=== PATIENT | male | born 1925 | race Caucasian/White ===

== ENCOUNTER → 2016-05-09 | Outpatient (CLI) | payer OTHER ==
[~2016-05-09] MED LIST: ACET-1256 PO; ASPI-435 PO; ATEN50TA8 PO; BIMA0.01 OPR; CALC500C50 PO; CETI10TA84 PO; CLOP1TAB15 PO; CYCL0.052 OP; FLM4 PO; FLNIN/; LEVO-366 PO; LOSA50TA6 PO; METH500T3 PO; MIRA1TAB3 PO; NAPR1TAB9 PO; NRN100 PO; NXM/40 PO; RANI300T PO; SIMV40TA2 PO; SNG10 PO
[2016-05-09 10:54] LABS: BLOOD UREA NITROGEN 25 mg/dl (7-18); BUN/CREATININE RATIO 20.8 (10-20); CALCIUM 8.7 mg/dl (8.5-10.1); CARBON DIOXIDE 30 mmol/L (21-32); CHLORIDE 109 mmol/L (98-107); GLUCOSE 101 mg/dl (70-99); POTASSIUM 3.9 mmol/L (3.5-5.1); SODIUM 144 mmol/L (136-145)
== END | disposition home or self-care (01) ==
LOC: C.LABVPSUW 09:29
PROVIDERS: ATTEND Internal Medicine Critical Care Medicine
DX: I12.9 Hypertensive chronic kidney disease with stage 1 through stage 4 chronic kidney disease, or unspecified chronic kidney disease (principal); N18.9 Chronic kidney disease, unspecified

== ENCOUNTER 2016-08-08 19:17 | Inpatient (IN) | payer OTHER ==
[~2016-08-08] VITALS: Ht 177.8 cm; Wt 75.0 kg
[~2016-08-08 19:17] MED LIST changes: -ATEN50TA8 PO; -BIMA0.01 OPR; -CETI10TA84 PO; -CLOP1TAB15 PO; -CYCL0.052 OP; -FLM4 PO; -LEVO-366 PO; -LOSA50TA6 PO; -METH500T3 PO; -MIRA1TAB3 PO; -NAPR1TAB9 PO; -NRN100 PO; -RANI300T PO; -SIMV40TA2 PO; -SNG10 PO
--- NOTE | 2016-08-08 19:43 | EMERGENCY ROOM VISIT NOTE ---
History Report prepared by Abram: Paulette Mcintosh Under the Supervision of: Dr. El Reyes M.D. First contact with patient: 19:26 Chief Complaint: STROKE SYMPTOMS Stated Complaint: ?STROKE History of Present Illness The patient is a 89 year old male who presents to the Emergency Room with complaints of persistent slurred speech starting around 6:30 am this morning. As per son, the patient was having some trouble walking today. He normally uses a cane to ambulate but has been using a walker today. The patient reports right leg weakness. He has chronic right leg numbness which is worse today. He also complains of some chills and back pain starting this morning. The patient denies confusion, headache, fevers, chest pain, shortness of breath, or any other complaints. He is on an aspirin but denies any other blood thinners. He has a family history of TIA. Source of History: patient, family Onset: around 6:30 am this morning Position: other (global) Quality: other (slurred speech) Timing: other (persistent) Associated Symptoms: + chills, + back pain, + weakness (right leg), + numbness (right leg), No fevers, No headache, No chest pain, No SOB Review of Systems All systems have been listed, reviewed, and are negative other than those previously mentioned. Please see Additional Medical History Sheet. Past Medical & Surgical Medical Problems: (1) Benign hypertension (2) BPH (benign prostatic hyperplasia) (3) Cholecystectomy (4) Esophageal Reflux (5) Facial droop (6) Gastroesophageal reflux disease (7) History of airway aspiration (8) Hyperlipidemia (9) Hyperlipidemia Nec/Nos (10) Hypertension Nos (11) Overactive bladder (12) Skin problems (13) Spinal stenosis (14) transurethral transection (15) Weakness Family History Hypertension Stroke or transient ischemic attack in son Social History Smoking Status: Former Smoker Alcohol Use: occasionally Drug Use: none Marital Status: Housing Status: lives with family Occupation Status: retired Current/Historical Medications Scheduled Acetaminophen (Tylenol), 500 MG PO DAILY Aspirin (Aspirin 81), 81 MG PO DAILY Atenolol (Tenormin), 50 MG PO DAILY Bimatoprost (Lumigan), 1 DROP OPR DAILY Cyclosporine (Ophth) (Restasis), 1 DROP OP UD Esomeprazole Magnesium (Nexium), 40 MG PO BID Gabapentin (Gabapentin), 100 MG PO BID Losartan Potassium (Cozaar), 50 MG PO DAILY Methylcellulose (Laxative) (Citrucel), 500 MG PO DAILY Mirabegron (Myrbetriq Er), 50 MG PO DAILY Ranitidine Hcl (Zantac), 300 MG PO HS Simvastatin (Zocor), 40 MG PO QPM Tamsulosin HCl (Tamsulosin HCl), 1 TAB PO DAILY Scheduled PRN Calcium Carbonate (Antacid) (Tums), 1-2 TABS PO DAILY PRN for Heartburn Cetirizine (Zyrtec), 10 MG PO DAILY PRN for ALLERGY SEASON Montelukast Sod (Montelukast Sodium), 10 MG PO DAILY PRN for ALLERGIC REACTION Naproxen (Aleve), 220 MG PO Q12 PRN for Pain Allergies Coded Allergies: Azithromycin (Verified Allergy, Unknown, PER H&P 05/20/11, 07/30/14) Erythromycin (Verified Allergy, Unknown, unknown, 07/30/14) Indomethacin (Verified Allergy, Unknown, PER ADMISSION ORDERS 05/20/11, TAKES NAPROXEN OTC, 07/30/14) Metformin (Verified Allergy, Unknown, PER H&P 05/20/11, 07/30/14) Penicillins (Verified Allergy, Unknown, UNKNOWN, 07/30/14) Rosiglitazone (Verified Allergy, Unknown, PER H&P 05/20/11, 07/30/14) Physical Exam Vital Signs Date Time Temp Pulse Resp B/P (MAP) Pulse Ox O2 Delivery O2 Flow Rate FiO2 08/08/16 23:30 82 20 128/76 97 Room Air 08/08/16 22:01 85 19 147/78 96 Room Air 08/08/16 20:50 75 20 126/69 95 Room Air 08/08/16 20:13 80 20 140/76 95 Room Air 08/08/16 20:01 95 Room Air 08/08/16 19:39 85 08/08/16 19:19 36.7 62 18 130/74 97 Room Air Physical Exam GENERAL: Patient awake, alert, oriented x 3. Patient follows commands. Patient does not appear toxic. Patient is adequately hydrated and well- nourished. SKIN: No erythema, pallor, cyanosis or rash HEENT: Normal head, pupils equal, reactive to light and accommodation. Slight right facial droop. Ears normal. Oral cavity and posterior pharynx appear normal. Neck: Without adenopathy, no neck vein distention. LUNGS: Clear to auscultation. No wheezes, no rales, no rhonchi. HEART: No murmurs. No gallops. No rubs ABDOMEN: No masses, no rebound, no hepatomegaly or splenomegaly. EXTREMITIES: No signs of trauma. No pedal or pretibial edema. No calf or thigh tenderness. Tenderness over sacrum. NEUROLOGIC: Slight right facial droop. Slight dysarthria. Patient has slight weakness right leg, and slight slurred speech. NIH stroke score: 2. Medical Decision & Procedures ER Provider Diagnostic Interpretation: X ray results are stated below per my interpretation and the radiologist's interpretation. CHEST ONE VIEW PORTABLE CLINICAL HISTORY: RIGHT SIDED WEAKNESS COMPARISON STUDY: 10/06/2015 FINDINGS: The heart is normal in size. There is no failure. There are no pleural effusions. There are subtle left midlung zone air space opacities. These were not present on the prior study. A minimal pneumonitis is suspected. Radiographic follow-up is recommended. [ IMPRESSION: Subtle left midlung zone airspace opacities, possibly representing a pneumonia. Radiographic follow-up is recommended. Electronically signed by: Neo Parisi M.D. 08/08/2016 8:02 PM Dictated Date/Time: 08/08/2016 8:[address] results as stated below per my review and radiologist interpretation: CT HEAD WITHOUT CONTRAST (CT) CLINICAL HISTORY: RIGHT SIDED WEAKNESS COMPARISON STUDY: No previous studies for comparison. TECHNIQUE: Axial CT of the brain is performed from the vertex to the skull base. IV contrast was not administered for this examination. CT DOSE: 614.27 mGy.cm FINDINGS: No intra or extra-axial mass lesions are visualized. There is no CT evidence of acute cortical infarction. There is no evidence of midline shift. There is no acute hemorrhage. No calvarial fractures are visualized. There are patchy white matter hypodensities likely on a small vessel basis. There is a right basal ganglia hypodensity, representing either a prominent CSF space or old lacunar infarct. There is no evidence of pathologic ventricular dilatation. There is no evidence of acute sinusitis IMPRESSION: No acute intracranial findings Electronically signed by: Neo Parisi M.D. 08/08/2016 7:47 PM Dictated Date/Time: 08/08/2016 7:45 PM Laboratory Results 08/08/16 19:50 Red Blood Count 4.76, Mean Corpuscular Volume 96.0, Mean Corpuscular Hemoglobin 33.8, Mean Corpuscular Hemoglobin Concent 35.2, Mean Platelet Volume 10.8, Neutrophils (%) (Auto) 82.6, Lymphocytes (%) (Auto) 9.3, Monocytes (%) (Auto) 7.0, Eosinophils (%) (Auto) 0.7, Basophils (%) (Auto) 0.2, Neutrophils # (Auto) 11.40, Lymphocytes # (Auto) 1.29, Monocytes # (Auto) 0.97, Eosinophils # (Auto) 0.09, Basophils # (Auto) 0.03 08/08/16 19:50 Test 08/08/16 19:50 08/08/16 22:35 White Blood Count 13.81 K/uL (4.8-10.8) Red Blood Count 4.76 M/uL (4.7-6.1) Hemoglobin 16.1 g/dL (14.0-18.0) Hematocrit 45.7 % (42-52) Mean Corpuscular Volume 96.0 fL (80-100) Mean Corpuscular Hemoglobin 33.8 pg (25-34) Mean Corpuscular Hemoglobin Concent 35.2 g/dl (32-36) Platelet Count 152 K/uL (130-400) Mean Platelet Volume 10.8 fL (7.4-10.4) Neutrophils (%) (Auto) 82.6 % Lymphocytes (%) (Auto) 9.3 % Monocytes (%) (Auto) 7.0 % Eosinophils (%) (Auto) 0.7 % Basophils (%) (Auto) 0.2 % Neutrophils # (Auto) 11.40 K/uL (1.4-6.5) Lymphocytes # (Auto) 1.29 K/uL (1.2-3.4) Monocytes # (Auto) 0.97 K/uL (0.11-0.59) Eosinophils # (Auto) 0.09 K/uL (0-0.5) Basophils # (Auto) 0.03 K/uL (0-0.2) RDW Standard Deviation 44.5 fL (36.4-46.3) RDW Coefficient of Variation 12.7 % (11.5-14.5) Immature Granulocyte % (Auto) 0.2 % Immature Granulocyte # (Auto) 0.03 K/uL (0.00-0.02) Prothrombin Time 10.7 SECONDS (9.0-12.0) Prothromb Time International Ratio 1.0 (0.9-1.1) Activated Partial Thromboplast Time 30.1 SECONDS (21.0-31.0) Partial Thromboplastin Ratio 1.2 Anion Gap 10.0 mmol/L (3-11) Est Creatinine Clear Calc Drug Dose 40.6 ml/min Estimated GFR () 56.5 Estimated GFR (Non- 48.7 BUN/Creatinine Ratio 19.8 (10-20) Calcium Level 8.6 mg/dl (8.5-10.1) Total Bilirubin 0.8 mg/dl (0.2-1) Aspartate Amino Transf (AST/SGOT) 7 U/L (15-37) Alanine Aminotransferase (ALT/SGPT) 16 U/L (12-78) Alkaline Phosphatase 88 U/L (45-117) Troponin I < 0.015 ng/ml (0-0.045) Total Protein 6.3 gm/dl (6.4-8.2) Albumin 3.8 gm/dl (3.4-5.0) Globulin 2.5 gm/dl (2.5-4.0) Albumin/Globulin Ratio 1.5 (0.9-2) Procalcitonin 0.05 ng/ml (0-0.5) Lactic Acid Level 0.9 mmol/L (0.4-2.0) Laboratory results as stated above per my review. Medications Administered Medications (Trade) Dose Ordered Sig/Daya Route Start Time Stop Time Status Last Admin Dose Admin Sodium Chloride 1,000 ml @ 1,000 mls/hr Q1H ONCE IV 08/08/16 21:30 08/08/16 22:29 DC 08/08/16 22:43 1,000 MLS/HR Levofloxacin (Levaquin / D5W) 750 mg NOW ONCE IV 08/08/16 21:30 08/08/16 21:31 DC 08/08/16 22:43 750 MG ECG Indication: weakness, other (Stroke-like symptoms) Rate (beats per minute): 83 Rhythm: normal sinus Findings: PVC (occasional), no acute ischemic change ED Course 1925: Past medical records reviewed. The patient was evaluated in room B06. A complete history and physical examination was performed. 2129: Tobramycin Sulfate 80 mg/Dextrose 102 ml @ 100 mls/hr IV, Levofloxacin 750 mg IV, Aztreonam 2000 mg/Dextrose 110 ml @ 100 mls/hr IV, Sodium Chloride 1000 ml @ 1000 mls/hr IV 2131: Upon reevaluation, the patient is resting comfortably.I discussed today's findings with the patient and his family. They verbalized agreement of the treatment plan. [facility] the [facility] for further management. Medical Decision Differential diagnosis includes but is not limited to CVA, TIA, complex migraine. Multiple labs, EKG and imaging were obtained. The patient has no evidence of a hemorrhagic stroke. 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 Chest x-ray reveals new small infiltrates on the left side. White count is elevated. Blood cultures were obtained prior to administration of IV Levaquin. The patient is outside of the window for TPA. I discussed care with the patient and his 2 sons. I also discussed care with the hospitalist. Medication Reconciliation: I attest that I have personally reviewed the patient' s current medication list. Blood Pressure Screening: Patient was found to have an elevated blood pressure and was referred to the hospitalist for recheck and further treatment. Consults Time Called: 2129 Consulting Physician: Dr. Coats of the [facility] Returned Call: [address] [facility] to [facility] the patient for further management. Impression Primary Impression: CVA (cerebral vascular accident) Additional Impression: Pneumonia Scribe Attestation The scribe's documentation has been prepared under my direction and personally reviewed by me in its entirety. I confirm that the note above accurately reflects all work, treatment, procedures, and medical decision making performed by me. Departure Information Dispostion Being Evaluated By Hospitalist Referrals No Doctor, Assigned (PCP) Patient Instructions My [facility] Stroke History Time Last Known Well around 6:30 am Stroke t-PA Criteria Reviewed Does NOT meet criteria for t-PA Reason t-PA Not Given Treatment not indicated Problem Qualifiers
--- NOTE | 2016-08-08 19:48 | DIAGNOSTIC IMAGING REPORT ---
CT HEAD WITHOUT CONTRAST (CT) CLINICAL HISTORY: RIGHT SIDED WEAKNESS COMPARISON STUDY: No previous studies for comparison. TECHNIQUE: Axial CT of the brain is performed from the vertex to the skull base. IV contrast was not administered for this examination. CT DOSE: 614.27 mGy.cm FINDINGS: No intra or extra-axial mass lesions are visualized. There is no CT evidence of acute cortical infarction. There is no evidence of midline shift. There is no acute hemorrhage. No calvarial fractures are visualized. There are patchy white matter hypodensities likely on a small vessel basis. There is a right basal ganglia hypodensity, representing either a prominent CSF space or old lacunar infarct. There is no evidence of pathologic ventricular dilatation. There is no evidence of acute sinusitis IMPRESSION: No acute intracranial findings Electronically signed by: Neo Parisi M.D. 08/08/2016 7:47 PM Dictated Date/Time: 08/08/2016 7:45 PM
--- NOTE | 2016-08-08 20:04 | DIAGNOSTIC IMAGING REPORT ---
CHEST ONE VIEW PORTABLE CLINICAL HISTORY: RIGHT SIDED WEAKNESS COMPARISON STUDY: 10/06/2015 FINDINGS: The heart is normal in size. There is no failure. There are no pleural effusions. There are subtle left midlung zone air space opacities. These were not present on the prior study. A minimal pneumonitis is suspected. Radiographic follow-up is recommended. [ IMPRESSION: Subtle left midlung zone airspace opacities, possibly representing a pneumonia. Radiographic follow-up is recommended. Electronically signed by: Neo Parisi M.D. 08/08/2016 8:02 PM Dictated Date/Time: 08/08/2016 8:01 PM
[2016-08-08 20:05] LABS: BASO % 0.2 %; BASO ABS # 0.03 K/uL (0-0.2); COMPLETE YES; EOS % 0.7 %; HEMATOCRIT 45.7 % (42-52); IG% 0.2 %; LYMPH % 9.3 %; LYMPH ABS # 1.29 K/uL (1.2-3.4); MEAN CORPUSCULAR HEMOGLOBIN 33.8 pg (25-34); MEAN CORPUSCULAR HGB CONC 35.2 g/dl (32-36); MEAN PLATELET VOLUME 10.8 fL (7.4-10.4); NEUT % 82.6 %; PLATELET COUNT 152 K/uL (130-400); RED BLOOD COUNT 4.76 M/uL (4.7-6.1); WHITE BLOOD COUNT 13.81 K/uL (4.8-10.8)
[2016-08-08 20:19] LABS: PARTIAL THROMBOPLASTIN RATIO 1.2; PROTHROMBIN TIME (PATIENT) 10.7 SECONDS (9.0-12.0)
[2016-08-08 20:25] LABS: ALT/SGPT 16 U/L (12-78); AST/SGOT 7 U/L (15-37); BLOOD UREA NITROGEN 26 mg/dl (7-18); BUN/CREATININE RATIO 19.8 (10-20); CALCIUM 8.6 mg/dl (8.5-10.1); CARBON DIOXIDE 24 mmol/L (21-32); CHLORIDE 108 mmol/L (98-107); GLUCOSE 127 mg/dl (70-99); POTASSIUM 3.8 mmol/L (3.5-5.1); SODIUM 142 mmol/L (136-145)
[2016-08-08 20:30] LABS: ALB/GLOB RATIO 1.5 (0.9-2); ALKALINE PHOSPHATASE 88 U/L (45-117)
[2016-08-08] MEDS ORDERED: SNG10 PO (20:34)
[2016-08-08] MEDS ORDERED: NRN100 PO (20:34)
[2016-08-08] MEDS ORDERED: BIMA0.01 OPB (20:34)
[2016-08-08] MEDS ORDERED: FLM4 PO (20:34)
[2016-08-08] MEDS ORDERED: MIRA1TAB3 PO (20:34)
[2016-08-08] MEDS ORDERED: DEXTROSE 5% IV ONE (21:30)
[2016-08-08] MEDS ORDERED: LEVAQUIN 750MG / 150ML D5W IV ONE (21:30)
[2016-08-08] MEDS ORDERED: SODIUM CHLORIDE 0.9% 1000ML 1,000 ML IV ONE (21:30)
[2016-08-08] MEDS ORDERED: AZTREONAM IV 2,000 MG in DEXTROSE 5% 100ML 100 ML IV ONE (21:30)
[2016-08-08] MEDS ORDERED: TOBRAMYCIN SULF IV ONE (21:30)
[2016-08-08] MEDS ORDERED: ACETAMINOPHEN 325 MG TAB PO PRN (22:30)
[2016-08-08] MEDS ORDERED: MAGNESIUM HYDROXIDE SUSP 30 ML UDC PO PRN (22:30)
[2016-08-08] MEDS ORDERED: ONDANSETRON INJ 2 MG/ML 2 ML VIAL IV PRN (22:30)
[2016-08-08] MEDS ORDERED: CLINDAMYCIN IV 300 MG in DEXTROSE 5% 50ML 50 ML IV SCH (22:30)
[2016-08-08] MEDS ORDERED: POLYETHYLENE (MIRALAX) 17 GM PACK PO PRN (22:30)
[2016-08-08] MEDS ORDERED: ALUMINUM/MAGNESIUM/SIMETH (MAALOX MAX) 30 ML UDC PO PRN (22:30)
[2016-08-08] MEDS ORDERED: NAPROXEN 250 MG TAB PO PRN (22:45)
[2016-08-08] MEDS ORDERED: CALCIUM CARBONATE 500 MG CHEWABLE PO PRN (22:45)
[2016-08-08] MEDS ORDERED: MONTELUKAST SOD 10 MG TAB PO PRN (22:45)
[2016-08-08] MEDS ORDERED: CETIRIZINE HCL 10 MG TAB PO PRN (22:45)
--- NOTE | 2016-08-08 23:21 | History and Physical ---
History & Physical Date & Time of Service: Aug 08, 2016 at 22:49 Chief Complaint: ?Stroke Primary Care Physician: Terrell Briseno M.D. History of Present Illness Source: patient, family This is a pleasant 89-year-old male with background history of hypertension, hyperlipidemia, GERD/Almendarez's esophagus, history of aspiration pneumonia, and multiple distant lower back surgeries, who presents to the emergency room, brought in by his 2 sons. He is a resident at the [facility] at [facility]. His sons were visiting him today in the late afternoon, noted that he seemed weaker and that is having some difficulty with ambulation. Normally he walks with a cane in his right hand due to long-standing lower extremity weakness/numbness of right leg due to spinal stenosis. However today, he needed tube oral his 's wheelchair to ambulate. The patient denies having any weakness that localizes unilaterally, he simply states "I just feel weak all over". In addition, the sons felt that he seems to been slurring his words slightly more than usual. The patient does state that he feels he is having some difficulty expressing words, but states that he is not having difficulty finding words. He denies any difficulty with comprehension or recognition. In the ED, they were told that he seemed as though he may have had some drooping of his right cheek. Otherwise he chest pain, palpitations, lightheadedness, dizziness, orthopnea or lower extremity edema. There is no history of falls, or head trauma. The patient never lost consciousness, and had no myoclonic movements, tongue biting, or urinary/bowel incontinence. He does state that for the past few days he has had some exertional shortness of breath. However he has not had any coughing, and has not felt wheezy. He does have chills at baseline, though has not measured any fevers and denies having any night sweats. He notes his appetite is at baseline and that he generally eats well. He does note that he is Priestly had a history of aspiration pneumonia, though denies that he's had any episodes of choking recently. In the ED, CT brain was normal. Consolidation was noted on chest x-ray, so the patient was treated with first doses of aztreonam, Levaquin and tobramycin. Past Medical/Surgical History Medical Problems: (1) Benign hypertension Status: Chronic (2) Cholecystectomy Status: Resolved (3) Esophageal Reflux Status: Chronic (4) Gastroesophageal reflux disease Status: Chronic (5) Hyperlipidemia Status: Chronic (6) Hyperlipidemia Nec/Nos Status: Chronic (7) Hypertension Nos Status: Chronic Family History Hypertension Stroke or transient ischemic attack in son Son has had a TIA. Sclerae in his 60s. Father had a stroke at 61 Mother had a massive KS at 86 Social History Smoking Status: Former Smoker Smokeless Tobacco Use: No Alcohol Use: none Drug Use: none Marital Status: Housing status: lives with family Occupational Status: retired Immunizations History of Influenza Vaccine: Yes History of Tetanus Vaccine?: Yes History of Pneumococcal: Yes History of Hepatitis B Vaccine: Unknown Allergies Coded Allergies: Azithromycin (Verified Allergy, Unknown, PER H&P 05/20/11, 07/30/14) Erythromycin (Verified Allergy, Unknown, unknown, 07/30/14) Indomethacin (Verified Allergy, Unknown, PER ADMISSION ORDERS 05/20/11, TAKES NAPROXEN OTC, 07/30/14) Metformin (Verified Allergy, Unknown, PER H&P 05/20/11, 07/30/14) Penicillins (Verified Allergy, Unknown, UNKNOWN, 07/30/14) Rosiglitazone (Verified Allergy, Unknown, PER H&P 05/20/11, 07/30/14) Home Medications Scheduled Acetaminophen (Tylenol), 500 MG PO DAILY Aspirin (Aspirin 81), 81 MG PO DAILY Atenolol (Tenormin), 50 MG PO DAILY Bimatoprost (Lumigan), 1 DROP OPR DAILY Cyclosporine (Ophth) (Restasis), 1 DROP OP UD Esomeprazole Magnesium (Nexium), 40 MG PO BID Gabapentin (Gabapentin), 100 MG PO BID Losartan Potassium (Cozaar), 50 MG PO DAILY Methylcellulose (Laxative) (Citrucel), 500 MG PO DAILY Mirabegron (Myrbetriq Er), 50 MG PO DAILY Ranitidine Hcl (Zantac), 300 MG PO HS Simvastatin (Zocor), 40 MG PO QPM Tamsulosin HCl (Tamsulosin HCl), 1 TAB PO DAILY Scheduled PRN Calcium Carbonate (Antacid) (Tums), 1-2 TABS PO DAILY PRN for Heartburn Cetirizine (Zyrtec), 10 MG PO DAILY PRN for ALLERGY SEASON Montelukast Sod (Montelukast Sodium), 10 MG PO DAILY PRN for ALLERGIC REACTION Naproxen (Aleve), 220 MG PO Q12 PRN for Pain Review of Systems 10 point review of systems is otherwise negative unless stated above in the history of present illness Physical Exam Vital Signs Date Time Temp Pulse Resp B/P (MAP) Pulse Ox O2 Delivery O2 Flow Rate FiO2 08/08/16 22:01 85 19 147/78 96 Room Air 08/08/16 20:50 75 20 126/69 95 Room Air 08/08/16 20:13 80 20 140/76 95 Room Air 08/08/16 20:01 95 Room Air 08/08/16 19:39 85 08/08/16 19:19 36.7 62 18 130/74 97 Room Air General Appearance: WD/WN, no apparent distress Head: normocephalic, atraumatic Eyes: normal inspection, PERRL, EOMI ENT: hearing grossly normal, pharynx normal (no deviation of the uvula), + pertinent finding (slight downward slanting of the right angle of the mouth; can make good smile) Neck: supple, no adenopathy, no JVD, + pertinent finding (no carotid bruits noted) Respiratory/Chest: chest non-tender, no respiratory distress, no accessory muscle use, + crackles (left base, and the posterior field) Cardiovascular: regular rate, rhythm, no gallop, no murmur Abdomen/GI: normal bowel sounds, non tender, soft Back: no CVA tenderness, no muscle spasm Extremities/Musculoskelatal: no calf tenderness, no pedal edema Neurologic/Psych: alert, normal mood/affect, oriented x 3, + pertinent finding (5 out of 5 motor strength in the upper and lower extremities; diminished sensation in the right lower extremity, which is long-standing for the patient) Skin: normal color, warm/dry, no rash Lymphatic: no adenopathy Intact finger to nose testing (Cerebellar) Negative pronator drift Diagnostics Laboratory Results Results Past 24 Hours Test 08/08/16 19:50 08/08/16 22:30 08/08/16 22:35 Range/Units White Blood Count 13.81 4.8-10.8 K/uL Red Blood Count 4.76 4.7-6.1 M/uL Hemoglobin 16.1 14.0-18.0 g/dL Hematocrit 45.7 42-52 % Mean Corpuscular Volume 96.0 80-100 fL Mean Corpuscular Hemoglobin 33.8 25-34 pg Mean Corpuscular Hemoglobin Concent 35.2 32-36 g/dl Platelet Count 152 130-400 K/uL Mean Platelet Volume 10.8 7.4-10.4 fL Neutrophils (%) (Auto) 82.6 % Lymphocytes (%) (Auto) 9.3 % Monocytes (%) (Auto) 7.0 % Eosinophils (%) (Auto) 0.7 % Basophils (%) (Auto) 0.2 % Neutrophils # (Auto) 11.40 1.4-6.5 K/uL Lymphocytes # (Auto) 1.29 1.2-3.4 K/uL Monocytes # (Auto) 0.97 0.11-0.59 K/uL Eosinophils # (Auto) 0.09 0-0.5 K/uL Basophils # (Auto) 0.03 0-0.2 K/uL RDW Standard Deviation 44.5 36.4-46.3 fL RDW Coefficient of Variation 12.7 11.5-14.5 % Immature Granulocyte % (Auto) 0.2 % Immature Granulocyte # (Auto) 0.03 0.00-0.02 K/uL Prothrombin Time 10.7 9.0-12.0 SECONDS Prothromb Time International Ratio 1.0 0.9-1.1 Activated Partial Thromboplast Time 30.1 21.0-31.0 SECONDS Partial Thromboplastin Ratio 1.2 Sodium Level 142 136-145 mmol/L Potassium Level 3.8 3.5-5.1 mmol/L Chloride Level 108 98-107 mmol/L Carbon Dioxide Level 24 21-32 mmol/L Anion Gap 10.0 3-11 mmol/L Blood Urea Nitrogen 26 7-18 mg/dl Creatinine 1.30 0.60-1.40 mg/dl Est Creatinine Clear Calc Drug Dose 40.6 ml/min Estimated GFR () 56.5 Estimated GFR (Non- 48.7 BUN/Creatinine Ratio 19.8 10-20 Random Glucose 127 70-99 mg/dl Calcium Level 8.6 8.5-10.1 mg/dl Total Bilirubin 0.8 0.2-1 mg/dl Aspartate Amino Transf (AST/SGOT) 7 15-37 U/L Alanine Aminotransferase (ALT/SGPT) 16 12-78 U/L Alkaline Phosphatase 88 45-117 U/L Troponin I < 0.015 0-0.045 ng/ml Total Protein 6.3 6.4-8.2 gm/dl Albumin 3.8 3.4-5.0 gm/dl Globulin 2.5 2.5-4.0 gm/dl Albumin/Globulin Ratio 1.5 0.9-2 Microbiology Results 08/08/16 Blood Culture, Received Pending 08/08/16 Blood Culture, Received Pending Diagnostic Radiology CT HEAD WITHOUT CONTRAST (CT) CLINICAL HISTORY: RIGHT SIDED WEAKNESS COMPARISON STUDY: No previous studies for comparison. TECHNIQUE: Axial CT of the brain is performed from the vertex to the skull base. IV contrast was not administered for this examination. CT DOSE: 614.27 mGy.cm FINDINGS: No intra or extra-axial mass lesions are visualized. There is no CT evidence of acute cortical infarction. There is no evidence of midline shift. There is no acute hemorrhage. No calvarial fractures are visualized. There are patchy white matter hypodensities likely on a small vessel basis. There is a right basal ganglia hypodensity, representing either a prominent CSF space or old lacunar infarct. There is no evidence of pathologic ventricular dilatation. There is no evidence of acute sinusitis IMPRESSION: No acute intracranial findings Electronically signed by: Neo Parisi M.D. 08/08/2016 7:47 PM Dictated Date/Time: 08/08/2016 7:45 PM The status of this report is Signed. Draft = Not yet reviewed or approved by Radiologist. Signed = Reviewed and approved by Radiologist. [~ rep ct add3]] CHEST ONE VIEW PORTABLE CLINICAL HISTORY: RIGHT SIDED WEAKNESS COMPARISON STUDY: 10/06/2015 FINDINGS: The heart is normal in size. There is no failure. There are no pleural effusions. There are subtle left midlung zone air space opacities. These were not present on the prior study. A minimal pneumonitis is suspected. Radiographic follow-up is recommended. [ IMPRESSION: Subtle left midlung zone airspace opacities, possibly representing a pneumonia. Radiographic follow-up is recommended. Electronically signed by: Neo Parisi M.D. 08/08/2016 8:02 PM Dictated Date/Time: 08/08/2016 8:01 PM EKG Sinus rhythm with occasional Premature ventricular complexes Otherwise normal ECG When compared with ECG of 30-JUL-2014 03:15, Premature ventricular complexes are now Present Impression Assessment and Plan (1) Transient ischemic attack Assessment & Plan: - Patient currently within the 24-hour window; noted that symptoms seemed present at 6:30 this morning - Out of window for TPA - CT brain negative for acute process - Additional studies to be ordered for further evaluation MRI brain combo MRA head without contrast MRA neck without contrast Carotid artery Dopplers Echocardiogram - I will order an HbA1c and fasting lipid profile with morning labs - Neurology is been consultative for further recommendations - Continue ASA 81 g daily; continue simvastatin - Patient's antihypertensives will be placed on hold, as we will allow for some degree of permissive hypertension; keep SBP less than 180 - Due to weakness, we will have PT and OT evaluate the patient (2) Pneumonia Assessment & Plan: - Subtle left mid zone opacity, clinically correlated crackles noted on left side - Patient is maintaining saturations on room air - We'll order pro-calcitonin level now and tomorrow morning - Patient is noted to have had history with aspiration - IV Levaquin and IV Flagyl - DuoNeb 4 times a day when necessary for shortness of breath or wheezing - We will reorder speech and leg which therapy to reassess the patient, last evaluation is noted to have been in 2014 (3) History of airway aspiration Assessment & Plan: - As noted in management of pneumonia (4) Hypertension Nos Assessment & Plan: - The patient takes atenolol and losartan at home - BPs are currently 1:30 to 140 systolic. - In the setting of evaluation for CVA/TIA, I will hold antihypertensives at this time and we will allow for permissive hypertension - Keep SBP less than 180 (5) Gastroesophageal reflux disease Assessment & Plan: - Continue Tums when necessary - Patient takes Esomeprazole at home; this will be changed to pantoprazole while admitted - Continue ranitidine (6) Hyperlipidemia Nec/Nos Assessment & Plan: - Continue simvastatin (7) Spinal stenosis Assessment & Plan: - Continue gabapentin - Naproxen when necessary, per home meds (8) Overactive bladder Assessment & Plan: - Continue Mirbetric (9) BPH (benign prostatic hyperplasia) Assessment & Plan: - Continue tamsulosin DVT Prophylaxis - Lovenox 40 mg daily - SCD Code Status - Level I Disposition - Telemetry - OT and PT evaluations have been ordered Level of Care Telemetry Resuscitation Status FULL RESUSCITATION VTE Prophylaxis VTE Risk Assessment Done? Y/N: Yes Risk Level: Moderate Note Resident Physician Supervision Note: I was present with Dr. Oliver during the history and exam. I discussed the case with the resident and agree with the findings and plan as documented in the note. Any exceptions or clarifications are listed here: 89 y/o M Hx HTN with CVA-like symptoms - speech difficulty and R facial droop - since AM Had additionally c/o cough and has an infiltrate on CXR OE AAO x 2 S1,2 R CTAB NT, ND, BS+ Difficulty with word finding is present as is facial asymmetry P: CVA workup - ASA, statin, neuro consult - MRI/MRA, carotid doppler Treating PNM with Levaquin - PRN nebs Documented By: Ramesh Coats
[2016-08-08] MEDS ORDERED: ALBUT/IPRATROP 3MG/0.5MG NEB 3 ML VIAL INH PRN (23:30)
[2016-08-09] MEDS ORDERED: GADAVIST IV PRN (02:15)
[2016-08-09 02:35] VITALS: BP 138/77; PULSE 84; TEMP 36.7; Ht 177.8 cm; Wt 75.0 kg
[2016-08-09] MEDS: METRONIDAZOLE / NSS 500 MG in PREMIXED NSS 100 ML IV SCH ×2 (05:17→12:35)
--- NOTE | 2016-08-09 06:34 | DIAGNOSTIC IMAGING REPORT ---
BILATERAL CAROTID DOPPLER STUDY HISTORY: Mental status change stroke evaluation COMPARISON: None. TECHNIQUE: Real-time, grayscale, and color Doppler sonography of the carotid arteries was performed. Imaging reviewed in the transverse and longitudinal planes. All measurements were calculated based on NASCET criteria. FINDINGS: Antegrade flow is seen in the bilateral vertebral arteries. The brachial pressures are hemodynamically similar. Mild plaque formation bilaterally The peak systolic velocity within the right ICA is 74. The right systolic ratio is 1.0. The peak systolic velocity within the left ICA is 77. The left systolic ratio is 1.1. IMPRESSION: No hemodynamically significant stenosis seen within the carotid arteries. Electronically signed by: Gurpreet Tello M.D. 08/09/2016 6:32 AM Dictated Date/Time: 08/09/2016 6:31 AM
--- NOTE | 2016-08-09 06:47 | DIAGNOSTIC IMAGING REPORT ---
MRI OF THE BRAIN WITHOUT AND WITH IV CONTRAST CLINICAL HISTORY: stroke evaluation mental status change COMPARISON STUDY: No previous studies for comparison. TECHNIQUE: Utilizing a 1.5 Rachel magnet and dedicated coil, multiplanar, multiecho imaging of the brain was performed pre and postcontrast administration. IV administration of 8.5 mL of Gadavist contrast was uneventful. FINDINGS: Diffusion-weighted images are negative for an acute ischemic event. Findings of age-related atrophy and chronic small vessel change are present. Ventricular system is midline. No significant postcontrast enhancement. IMPRESSION: No acute process. Age-related change. Electronically signed by: Gurpreet Tello M.D. 08/09/2016 6:46 AM Dictated Date/Time: 08/09/2016 6:45 AM
[2016-08-09 06:53] LABS: HEMATOCRIT 42.4 % (42-52); MEAN CORPUSCULAR HEMOGLOBIN 32.5 pg (25-34); MEAN CORPUSCULAR HGB CONC 33.5 g/dl (32-36); MEAN PLATELET VOLUME 11.2 fL (7.4-10.4); PLATELET COUNT 129 K/uL (130-400); RED BLOOD COUNT 4.37 M/uL (4.7-6.1)
[2016-08-09 07:19] VITALS: BP 130/71; PULSE 65; TEMP 36.6; O2SAT 94
--- NOTE | 2016-08-09 07:25 | DIAGNOSTIC IMAGING REPORT ---
MR ANGIOGRAM OF THE BRAIN CLINICAL HISTORY: Right-sided weakness. COMPARISON STUDY: MRI of the brain performed concurrently on 08/09/2016. TECHNIQUE: 3-D [id number] MR angiography of the intracranial circulation is performed. 3-D tumble views are created and assessed. IV contrast was not administered for this examination. FINDINGS: The internal carotid arteries are widely patent bilaterally, as are the anterior and middle cerebral arteries. The vertebrobasilar system and posterior cerebral arteries are widely patent. The vertebral arteries are codominant. There is no aneurysm, high-grade stenosis, or focal vessel cutoff seen throughout the intracranial circulation. The brain parenchyma is normal as visualized. IMPRESSION: Unremarkable MR angiogram of the brain. Electronically signed by: Sarthak Zhao M.D. 08/09/2016 7:23 AM Dictated Date/Time: 08/09/2016 7:21 AM
[2016-08-09 07:29] LABS: BUN/CREATININE RATIO 21.5 (10-20); CALCIUM 8.3 mg/dl (8.5-10.1); CREATININE 1.1 mg/dl (0.60-1.40); POTASSIUM 3.8 mmol/L (3.5-5.1)
[2016-08-09 07:32] LABS: CHOLESTEROL/HDL RATIO 2.1
--- NOTE | 2016-08-09 07:32 | DIAGNOSTIC IMAGING REPORT ---
NECK MRA HISTORY: Mental status change stroke eval TECHNIQUE: [id number] and gadolinium-enhanced MRA of the neck was performed both before and after the intravenous administration of contrast. All measurements were calculated based on NASCET criteria. COMPARISON STUDY: None. FINDINGS: The aortic arch and proximal great vessels are widely patent. 30% narrowing left internal carotid artery. Intimal abscess chronic change proximal right internal carotid artery. IMPRESSION: No major stenotic process. 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 Electronically signed by: Gurpreet Tello M.D. 08/09/2016 7:30 AM Dictated Date/Time: 08/09/2016 7:29 AM
[2016-08-09] MEDS: RESTASIS: ORDER AWAITING ACTION SCH ×2 (07:40)
[2016-08-09] MEDS ORDERED: ENOXAPARIN 40 MG/0.4 ML SYR SC SCH (08:00)
[2016-08-09 09:00] VITALS: PULSE 88; O2SAT 97
[2016-08-09] MEDS ORDERED: TAMSULOSIN HCL 0.4 MG CAP PO SCH (09:00)
[2016-08-09] MEDS ORDERED: BIMATOPROST 0.01% OP SOLN 2.5 ML BTL OPR SCH (09:00)
[2016-08-09] MEDS ORDERED: ALBUT/IPRATROP 3MG/0.5MG NEB 3 ML VIAL INH ONE (09:00)
[2016-08-09] MEDS ORDERED: LOSARTAN POTASSIUM 50 MG TAB PO SCH (09:00)
[2016-08-09] MEDS ORDERED: METHYLCELLULOSE POWDER 454 GM JAR PO SCH (09:00)
[2016-08-09] MEDS ORDERED: ASPIRIN/ALUM/MAGNES/CAL CARB 325 MG TAB PO SCH (09:00)
[2016-08-09] MEDS ORDERED: GABAPENTIN 100 MG CAP PO SCH (09:00)
[2016-08-09] MEDS ORDERED: ATORVASTATIN 40 MG TAB PO SCH (09:00)
[2016-08-09] MEDS ORDERED: MIRABEGRON ER 25 MG TAB PO SCH (09:00)
[2016-08-09] MEDS ORDERED: PANTOprazole SOD 40 MG TAB PO SCH (09:00)
[2016-08-09] MEDS ORDERED: ASPIRIN 81 MG ECTAB PO SCH (09:00)
[2016-08-09 09:02] LABS: ESTIMATED AVERAGE GLUCOSE 108 mg/dl; HA1C FLAG Normal (Normal)
--- NOTE | 2016-08-09 09:28 | Neurology Consultation ---
Neurology Consultation Date of Consultation: Aug 09, 2016. Attending Physician: Ramesh Coats M.D. Primary Care Physician: Terrell Briseno M.D. Reason for Consultation: Patient is an 89 year old, was asked to see at the request of Dr. Oliver, for neurologic consultation regarding new onset dysarthria and weakness. History of Present Illness Source: patient, caregiver, hospital records Patient has a long-standing history of hypertension which is controlled. He does not have diabetes and never had a stroke before. He does have some dyslipidemia and is on a statin. He has been on 81 mg aspirin tablet for years. 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 He has had chronic right lower extremity weakness, numbness, and pain ever since although this waxes and wanes over time. This has been stable. In May 2013 he slipped and fell fracturing his right hip requiring repair by Dr. Cohen. He was in his usual state of health when he woke up on August 08 at 0630 hours and noted some slurred speech and trouble walking. He felt like his legs were both weak and he didn't have coordination. He felt his arms were still normal. The right leg may have been a little weaker than the left leg. He didn't do much about this although he ended up telling family members and eventually brought him into the emergency room. He arrived on August 08 at 1919 hours with a temperature 36.7, pulse 62, respiratory rate 18, blood pressure 130/74, O2 saturation 97%. He was described as awake and alert with some slight dysarthria, slight right facial droop, and slight right lower extremity weakness. He felt that he was markedly improved by the time he got to the emergency room from when he woke up in the morning. Chest x-ray was unremarkable except for some left mid lung findings of uncertain significance. CT scan of the head showed no acute changes. He was out of the window for TPA CBC was unremarkable and affect chem profile was unremarkable except for glucose 127. Lipid profile was quite normal and a total cholesterol was 89. Carotid ultrasound was unremarkable. MR angiography of the head was unremarkable, with no significant stenoses MR angiography of the neck showed a 50% stenosis of the left internal carotid artery and a 30% stenosis of the right internal carotid artery. MRI of the brain showed moderate atrophy and mild to moderate old small vessel ischemic changes but no acute stroke or other significant abnormalities. Currently, the patient feels back to baseline with no residual issues. Past Medical/Surgical History Medical Problems: (1) CVA (cerebral vascular accident) Status: Acute (2) Pneumonia Status: Acute Hypertension Benign prostatic hypertrophy Gastroesophageal reflux disease Dyslipidemia History of aspiration pneumonia Post laparoscopic cholecystectomy April 2011 Post TURP Several lumbar spine surgeries for disc disease and spinal stenosis, 1969, 1980 , 1994, with residual right lower extremity weakness and numbness. Post hip fracture May 2013 requiring surgical repair Chronic low back pain requiring injections from pain management, Family History Mother age 86 of an OR Father age 61 of a stroke One son with a TIA Father: stroke Mother: heart disease Social History Patient lives with his at [facility] Patient quit cigarette smoking in his early 30s. 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 Smoking Status: Former smoker Smokeless Tobacco Use: No Alcohol Use: occasionally Drug Use: none Marital Status: Housing Status: lives with family Occupation Status: retired Allergies Coded Allergies: Azithromycin (Verified Allergy, Unknown, PER H&P 05/20/11, 07/30/14) Erythromycin (Verified Allergy, Unknown, unknown, 07/30/14) Indomethacin (Verified Allergy, Unknown, PER ADMISSION ORDERS 05/20/11, TAKES NAPROXEN OTC, 07/30/14) Metformin (Verified Allergy, Unknown, PER H&P 05/20/11, 07/30/14) Penicillins (Verified Allergy, Unknown, UNKNOWN, 07/30/14) Rosiglitazone (Verified Allergy, Unknown, PER H&P 05/20/11, 07/30/14) Current Inpatient Medications Current Inpatient Medications Medications (Trade) Dose Ordered Sig/Daya Route Start Time Stop Time Status Last Admin Dose Admin Enoxaparin Sodium (Lovenox Inj) 40 mg Q24H SC 08/09/16 08:00 09/08/16 07:59 08/09/16 08:32 40 MG Acetaminophen (Tylenol Tab) 650 mg Q4H PRN PO 08/08/16 22:30 09/07/16 22:29 Al Hydrox/Mg Hydrox/Simethicone (Maalox Max Susp) 15 ml Q4H PRN PO 08/08/16 22:30 09/07/16 22:29 Magnesium Hydroxide (Milk Of Magnesia Susp) 30 ml Q12H PRN PO 08/08/16 22:30 09/07/16 22:29 Ondansetron HCl (Zofran Inj) 4 mg Q6H PRN IV 08/08/16 22:30 09/07/16 22:29 Polyethylene (Miralax Powder Packet) 17 gm DAILY PRN PO 08/08/16 22:30 09/07/16 22:29 Levofloxacin 750 mg/Prmx 150 ml @ 100 mls/hr Q48H IV 08/10/16 22:00 08/15/16 21:59 Metronidazole 500 mg/Prmx 100 ml @ 100 mls/hr Q8H IV 08/09/16 04:00 08/16/16 03:59 08/09/16 05:17 100 MLS/HR Atenolol (Tenormin Tab) 50 mg DAILY PO 08/09/16 09:00 09/08/16 08:59 Future Hold Calcium Carbonate (Tums Chew Tab) 1,000 mg DAILY PRN PO 08/08/16 22:45 09/07/16 22:44 Cetirizine HCl (zyrTEC TAB) 10 mg DAILY PRN PO 08/08/16 22:45 09/07/16 22:44 Gabapentin (Neurontin Cap) 100 mg BID PO 08/09/16 09:00 09/08/16 08:59 08/09/16 08:33 100 MG Mirabegron (Myrbetriq Er) 50 mg DAILY PO 08/09/16 09:00 09/08/16 08:59 08/09/16 08:33 50 MG Montelukast Sodium (Singulair Tab) 10 mg DAILY PRN PO 08/08/16 22:45 09/07/16 22:44 Tamsulosin HCl (Flomax Cap) 0.4 mg DAILY PO 08/09/16 09:00 09/08/16 08:59 08/09/16 08:32 0.4 MG Bimatoprost (Lumigan 0.01%) 1 drops DAILY OPR 08/09/16 09:00 09/08/16 08:59 08/09/16 08:33 1 DROPS Miscellaneous Information (Order Awaiting Action) 1 ea QS N/A 08/09/16 00:00 09/08/16 00:00 Pantoprazole Sodium (Protonix Tab) 40 mg BID PO 08/09/16 09:00 09/08/16 08:59 08/09/16 08:33 40 MG Methylcellulose (Citrucel Powder) 1 gm DAILY PO 08/09/16 09:00 09/08/16 08:59 Ranitidine HCl (zANTac TAB) 300 mg HS PO 08/09/16 21:00 09/08/16 20:59 Albuterol/ Ipratropium (Duoneb) 3 ml QID PRN INH 08/08/16 23:30 09/07/16 23:29 Gadobutrol (Gadavist) 7.5 mmol UD PRN IV 08/09/16 02:15 08/13/16 02:14 Atorvastatin Calcium (Lipitor Tab) 40 mg QAM PO 08/09/16 09:00 09/08/16 08:59 08/09/16 08:33 40 MG Aspirin/Aluminum/ Magnesium/Ca Carb (Ascriptin Tab) 325 mg DAILY PO 08/09/16 09:00 09/08/16 08:59 08/09/16 08:33 325 MG Review of Systems Constitutional: No weakness, No fatigue Eyes: No worsening of vision, No diplopia ENT: No tinnitus, No trouble swallowing Respiratory: No cough, No shortness of breath Cardiovascular: No chest pain, No palpitations Abdomen: No pain, No nausea Musculoskeletal: No joint pain, No muscle pain Genitourinary - Male: No dysuria, No urinary incontinence Neurologic: + balance problems, No weakness, No numbness/tingling, No vertigo Psychiatric: No depression symptoms, No anxiety Endocrine: No fatigue Hematologic / Lymphatic: No abnormal bleeding/bruising Integumentary: No rash Allergic / Immunologic: No hives Physical Exam Vital Signs (Past 24 Hrs): Date Time Temp Pulse Resp B/P (MAP) Pulse Ox O2 Delivery O2 Flow Rate FiO2 08/09/16 08:00 Room Air 08/09/16 07:19 36.6 65 18 130/71 (90) 94 Room Air 08/09/16 04:00 Room Air 08/09/16 02:35 36.7 84 16 138/77 Room Air 08/08/16 23:30 82 20 128/76 97 Room Air 08/08/16 22:01 85 19 147/78 96 Room Air 08/08/16 20:50 75 20 126/69 95 Room Air 08/08/16 20:13 80 20 140/76 95 Room Air 08/08/16 20:01 95 Room Air 08/08/16 19:39 85 08/08/16 19:19 36.7 62 18 130/74 97 Room Air The patient is right-handed. The patient is awake and alert. Speech is normal to conversation. With test phrases he has slight dysarthria time but other times is quite clear. He has no aphasia. Mentation and thought processes seem intact with orientation and normal fund of knowledge. Mood and affect are normal and appropriate. Appearance and grooming are normal. The discs are difficult to visualize but seem sharp with positive venous pulsations. Pupils are 2-3mm bilaterally and reactive to light. Extraocular eye muscles are intact without nystagmus. Visual acuity and visual leal seem normal grossly to confrontation. There are no deficits to sensation of the face bilaterally. Corneal reflexes are positive bilaterally. There is a slight droop of the corner of the mouth at rest on the right. However this moves well with voluntary smile and with reflexive laughing. He has good strength holding air in his cheeks puffed out. Forehead is strong bilaterally and eye closure and opening his quite strong bilaterally as well. Hearing seems intact grossly to voice and finger rub. Palate moves well without asymmetry. There is normal sternocleidomastoid and trapezius strength bilaterally. Tongue is midline with good strength bilaterally. Neck is with full range of motion without discomfort. There are no cervical bruits. There are no cranial or ocular bruits. Heart is without murmur. Cervical, thoracic, and lumbar spine are nontender to palpation. Gait is narrow based but he limps favoring the right leg. He is stable stance. With outstretched arms there is no drift. There are no resting, postural, or action tremors. There is no ataxia with [id number] testing. There is good facility in the hands. There are no abnormal involuntary movements noted. Motor strength is 5/5 diffusely in the arms bilaterally including deltoids, biceps, brachioradialis, wrist flexors and extensors, sink cutter, and intrinsic hand muscles. Motor strength is 5/5 diffusely in the legs bilaterally including hip flexors, quadriceps, hamstring, gastrocnemius, tibialis anterior, tibialis posterior, and peroneii muscles bilaterally. Toe extensors are normal and there is good bulk in the extensor digitorum brevis muscle bilaterally. The limbs have good tone without rigidity or spasticity, and there is no atrophy noted. Muscle bulk is normal, there is no tenderness, no myotonia noted to percussion, and no fasciculations seen. Sensory examination is intact to pin and touch throughout all four limbs. Reflexes are 1/4 in the biceps, triceps, brachioradialis, quadriceps, and Achilles tendons bilaterally. Toes are downgoing with plantar stimulation bilaterally. Peripheral pulses are present and of normal quality distally in all four limbs. There is no peripheral edema noted. Laboratory Results Past 24 Hours: 08/09/16 06:35 08/09/16 06:34 Test 08/08/16 19:50 08/08/16 22:35 08/09/16 06:34 08/09/16 06:35 Immature Granulocyte % (Auto) 0.2 % White Blood Count 13.81 K/uL (4.8-10.8) Red Blood Count 4.76 M/uL (4.7-6.1) 4.37 M/uL (4.7-6.1) Hemoglobin 16.1 g/dL (14.0-18.0) Hematocrit 45.7 % (42-52) Mean Corpuscular Volume 96.0 fL (80-100) 97.0 fL (80-100) Mean Corpuscular Hemoglobin 33.8 pg (25-34) 32.5 pg (25-34) Mean Corpuscular Hemoglobin Concent 35.2 g/dl (32-36) 33.5 g/dl (32-36) Platelet Count 152 K/uL (130-400) Mean Platelet Volume 10.8 fL (7.4-10.4) 11.2 fL (7.4-10.4) Neutrophils (%) (Auto) 82.6 % Lymphocytes (%) (Auto) 9.3 % Monocytes (%) (Auto) 7.0 % Eosinophils (%) (Auto) 0.7 % Basophils (%) (Auto) 0.2 % Neutrophils # (Auto) 11.40 K/uL (1.4-6.5) Lymphocytes # (Auto) 1.29 K/uL (1.2-3.4) Monocytes # (Auto) 0.97 K/uL (0.11-0.59) Eosinophils # (Auto) 0.09 K/uL (0-0.5) Basophils # (Auto) 0.03 K/uL (0-0.2) Immature Granulocyte # (Auto) 0.03 K/uL (0.00-0.02) Prothrombin Time 10.7 SECONDS (9.0-12.0) Prothromb Time International Ratio 1.0 (0.9-1.1) Activated Partial Thromboplast Time 30.1 SECONDS (21.0-31.0) Partial Thromboplastin Ratio 1.2 Total Bilirubin 0.8 mg/dl (0.2-1) Aspartate Amino Transf (AST/SGOT) 7 U/L (15-37) Alanine Aminotransferase (ALT/SGPT) 16 U/L (12-78) Alkaline Phosphatase 88 U/L (45-117) Troponin I < 0.015 ng/ml (0-0.045) Total Protein 6.3 gm/dl (6.4-8.2) Albumin 3.8 gm/dl (3.4-5.0) Globulin 2.5 gm/dl (2.5-4.0) Albumin/Globulin Ratio 1.5 (0.9-2) Lactic Acid Level 0.9 mmol/L (0.4-2.0) Anion Gap 9.0 mmol/L (3-11) Est Creatinine Clear Calc Drug Dose 15.6 ml/min Estimated GFR () 69.1 Estimated GFR (Non- 59.6 BUN/Creatinine Ratio 21.5 (10-20) Calcium Level 8.3 mg/dl (8.5-10.1) Triglycerides Level 92 mg/dl (0-150) Cholesterol Level 89 mg/dl (0-200) HDL Cholesterol 42 mg/dl LDL Cholesterol, Calculated 29 mg/dl VLDL Cholesterol, Calculated 18 mg/dl Cholesterol/HDL Ratio 2.1 RDW Standard Deviation 44.8 fL (36.4-46.3) RDW Coefficient of Variation 12.8 % (11.5-14.5) Estimated Average Glucose 108 mg/dl Hemoglobin A1c 5.4 % (4.5-5.6) Procalcitonin < 0.05 ng/ml (0-0.5) Imaging MRI OF THE BRAIN WITHOUT AND WITH IV CONTRAST CLINICAL HISTORY: stroke evaluation mental status change COMPARISON STUDY: No previous studies for comparison. TECHNIQUE: Utilizing a 1.5 Rachel magnet and dedicated coil, multiplanar, multiecho imaging of the brain was performed pre and postcontrast administration. IV administration of 8.5 mL of Gadavist contrast was uneventful. FINDINGS: Diffusion-weighted images are negative for an acute ischemic event. Findings of age-related atrophy and chronic small vessel change are present. Ventricular system is midline. No significant postcontrast enhancement. IMPRESSION: No acute process. Age-related change. Electronically signed by: Gurpreet Tello M.D. 08/09/2016 6:46 AM Impression 1. Acute onset dysarthria and some right-sided weakness August 08, consistent with transient ischemic attack Symptomatically he feels back to normal and has little to no deficits on neurologic examination today. There may be some very slight dysarthria at times and a slight facial droop at the corner of the mouth which does move voluntarily. He has no meningeal signs or encephalopathy. He is clinically stable currently. MRI of the brain showed no acute stroke. There is mild old small vessel ischemic disease and moderate atrophy, both consistent with his advanced age. MR angiography was unremarkable except for some minor stenoses as listed above. Risk factors for stroke include advanced age, hypertension, dyslipidemia. This TIA occurred while the patient was on an 81 mg aspirin tablet daily. 2. Hypertension, controlled on medication. 3. Dyslipidemia, controlled on medication. 4. Mild carotid stenosis bilaterally, 50% on the left and 30% on the right 5. 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 Chronic low back pain post multiple surgeries with chronic radicular symptoms of an old nature in the right lower extremity This problem is stable. Plan 1. Awaiting echocardiogram results. 2. Discontinue aspirin and initiate clopidogrel 75 mg daily. 3. Increase activity as able and continue physical, occupational, and speech therapy. 4. Patient has a low total cholesterol and is not a candidate, given this and his advanced age, for high-dose statin. I spoke with Dr. Lazar regarding this case including differential diagnosis and treatment options.
[2016-08-09 11:12] VITALS: BP 116/70; PULSE 77; TEMP 36.5; O2SAT 96
[2016-08-09] MEDS ORDERED: CLOP1TAB15 PO (13:56)
--- NOTE | 2016-08-09 13:57 | Discharge Instructions ---
Discharge Instructions Date of Service Aug 09, 2016. Admission Reason for Admission: Facial Droop,Weakness VTE Date & Time Date of VTE Diagnosis: Aug 08, 2016 Time of VTE Diagnosis: 19:55 Discharge Goals Goal(s): Improve disease control Activity Recommendations Activity Limitations: resume your previous activity Exercise/Sports Limitations: none May Resume Sexual Activity: when tolerated . Instructions / Follow-Up Instructions / Follow-Up Stop taking ASPIRIN - this has been switched to PLAVIX. This is also a blood thinner to prevent clots from forming. Medication Instructions: Your condition is typically treated with an anticoagulant. Anticoagulants will thin your blood to help prevent new clots. * You should take her medication exactly as directed. * Never skip a dose. * Never take a double dose. If you miss a dose, take it as soon as you remember. Call your Primary Care doctor if you experience any of the following: * Swelling or Pain in your leg * Sudden, continuous pain deep in a muscle * Pain that worsens when you are active or when you stand still for a long time * Chest Pain * Sudden Shortness of Breath * Rapid or pounding heart beat * Fainting * Dizziness * Cough with blood or bloody sputum * Sweating more than normal * Bruises * Heavy or uncontrolled bleeding * Blood in your urine, stool or vomit * Black or tarry stools Caring for Your Self at Home: * Avoid sitting, standing or lying down for long periods without moving your legs and feet * When traveling by car, stop to get out and move around at least once every 3 hours * On long airplane, train or bus rides, get up and move around when possible * If you can't get up, wiggle your toes and tighten your calves to keep your blood moving Follow Up: It is important for you to keep your follow up appointments with your medical provider. Current Hospital Diet Patient's current hospital diet: Regular Diet, AHA Diet (Heart Healthy) Discharge Diet Recommended Diet: AHA Diet (Heart Healthy) Pending Studies Studies pending at discharge: no Laboratory Results Hemoglobin A1c Test 08/09/16 06:35 Range/Units Estimated Average Glucose 108 mg/dl Hemoglobin A1c 5.4 4.5-5.6 % Lipid Panel Test 08/09/16 06:34 Range/Units Triglycerides Level 92 0-150 mg/dl Cholesterol Level 89 0-200 mg/dl HDL Cholesterol 42 mg/dl Cholesterol/HDL Ratio 2.1 LDL Cholesterol, Calculated 29 mg/dl Medical Emergencies . Who to Call and When: Medical Emergencies: If at any time you feel your situation is an emergency, please call 911 immediately. . Non-Emergent Contact Non-Emergency issues call your: Primary Care Provider . . "Provider Documentation" section prepared by Allison Lazar. . VTE Core Measure Inpt VTE Proph given/why not?: Unfractionated heparin SQ, SCD's
--- NOTE | 2016-08-09 13:59 | Discharge Summary ---
Discharge Summary Date of Service Aug 09, 2016. (Allison Lazar MD) Discharge Summary Admission Date: Aug 08, 2016 at 22:25 Discharge Date: Aug 09, 2016 Discharge Disposition: Home Principal Diagnosis: Weakness, TIA rule out Immunizations: Have You Had Influenza Vaccine: Yes History of Tetanus Vaccine?: Yes History of Pneumococcal: Yes History of Hepatitis B Vaccine: Unknown Procedures: ECHO: -- Conclusions -- * There is mild asymmetric left ventricular hypertrophy. * Left ventricular systolic function is normal. * Injection of contrast documented no interatrial shunt. * Mild aortic regurgitation. Procedure Details * A complete two-dimensional transthoracic echocardiogram was performed (2D, M-mode, Doppler and color flow Doppler). Left Ventricle * The left ventricle is grossly normal size. * There is mild asymmetric left ventricular hypertrophy. * The basal septum is thickened and angulated consistent with sigmoid septum. * Left ventricular systolic function is normal. * Ejection Fraction = 55-60%. NECK CTA: IMPRESSION: No major stenotic process. 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 BRAIN MRA: IMPRESSION: Unremarkable MR angiogram of the brain BRAIN MRI: IMPRESSION: No acute process. Age-related change CAROTID US: IMPRESSION: No hemodynamically significant stenosis seen within the carotid arteries. CXR: IMPRESSION: Subtle left midlung zone airspace opacities, possibly representing a pneumonia. Radiographic follow-up is recommended. HEAD CT: IMPRESSION: No acute intracranial findings Consultations: NEUROLOGY: Recommendations: 1. Awaiting echocardiogram results. (See above) 2. Discontinue aspirin and initiate clopidogrel 75 mg daily. 3. Increase activity as able and continue physical, occupational, and speech therapy. 4. Patient has a low total cholesterol and is not a candidate, given this and his advanced age, for high-dose statin. (Allison Lazar MD) Medication Reconciliation New Medications: Clopidogrel (Plavix) 75 Mg Tab 75 MG PO DAILY for 30 Days, #30 TAB Continued Medications: Acetaminophen (Tylenol) 500 Mg Tab 500 MG PO DAILY Atenolol (Tenormin) 50 Mg Tab 50 MG PO DAILY, 0 Refills Bimatoprost (Lumigan) 0.01 % Kamini 1 DROP OPR DAILY, #5 Calcium Carbonate (Antacid) (Tums) 500 Mg Chw 1-2 TABS PO DAILY PRN for Heartburn Cetirizine (Zyrtec) 10 Mg Tab 10 MG PO DAILY PRN for ALLERGY SEASON Cyclosporine (Ophth) (Restasis) 0.05 % Emu 1 DROP OP UD, #180 Esomeprazole Magnesium (Nexium) 40 Mg Cap 40 MG PO BID, #180 Gabapentin (Gabapentin) 100 Mg Cap 100 MG PO BID, #180 Losartan Potassium (Cozaar) 50 Mg Tab 50 MG PO DAILY Methylcellulose (Laxative) (Citrucel) 500 Mg Tab 500 MG PO DAILY Mirabegron (Myrbetriq Er) 50 Mg Tab 50 MG PO DAILY, #90 Montelukast Sod (Montelukast Sodium) 10 Mg Tab 10 MG PO DAILY PRN for ALLERGIC REACTION, #90 Naproxen (Aleve) 220 Mg Tab 220 MG PO Q12 PRN for Pain, 0 Refills Ranitidine Hcl (Zantac) 300 Mg Tab 300 MG PO HS, #90 Simvastatin (Zocor) 40 Mg Tab 40 MG PO QPM, 0 Refills Tamsulosin HCl (Tamsulosin HCl) 0.4 Mg Cap 1 TAB PO DAILY, #90 Discontinued Medications: Aspirin (Aspirin 81) 81 Mg Tab 81 MG PO DAILY Discharge Exam Review of Systems: Constitutional: No fever, No chills, No weight loss Eyes: No worsening of vision ENT: No hearing loss Respiratory: No cough, No sputum, No wheezing, No shortness of breath, No dyspnea on exertion, No dyspnea at rest Cardiovascular: No chest pain Abdomen: No pain, No nausea, No vomiting Musculoskeletal: No joint pain Genitourinary - Male: No hematuria, No dysuria, No urinary frequency Neurologic: No memory loss, No paralysis, No weakness Psychiatric: No depression symptoms Endocrine: No fatigue Hematologic / Lymphatic: No abnormal bleeding/bruising Integumentary: No rash Physical Exam: General Appearance: WD/WN, no apparent distress Eyes: normal inspection, PERRL ENT: hearing grossly normal Neck: supple, no JVD Respiratory/Chest: lungs clear (Slight wheeze to R base but NO L crackles or other signs suggesting pneumonia), normal breath sounds, no respiratory distress, no accessory muscle use Cardiovascular: regular rate, rhythm, no murmur, normal peripheral pulses Abdomen / GI: normal bowel sounds, non tender, soft Extremities: normal inspection, no pedal edema Neurologic/Psychiatric: alert, normal mood/affect, normal reflexes Skin: no rash Lymphatic: no adenopathy (Allison Lazar MD) Hospital Course HPI: This is a pleasant 89-year-old male with background history of hypertension, hyperlipidemia, GERD/Almendarez's esophagus, history of aspiration pneumonia, and multiple distant lower back surgeries, who presents to the emergency room, brought in by his 2 sons. He is a resident at the [facility]. His sons were visiting him today in the late afternoon, noted that he seemed weaker and that is having some difficulty with ambulation. Normally he walks with a cane in his right hand due to long-standing lower extremity weakness/numbness of right leg due to spinal stenosis. However today, he needed tube oral his 's wheelchair to ambulate. The patient denies having any weakness that localizes unilaterally, he simply states "I just feel weak all over". In addition, the sons felt that he seems to been slurring his words slightly more than usual. The patient does state that he feels he is having some difficulty expressing words, but states that he is not having difficulty finding words. He denies any difficulty with comprehension or recognition. In the ED, they were told that he seemed as though he may have had some drooping of his right cheek. Otherwise he chest pain, palpitations, lightheadedness, dizziness, orthopnea or lower extremity edema. There is no history of falls, or head trauma. The patient never lost consciousness, and had no myoclonic movements, tongue biting, or urinary/bowel incontinence. He does state that for the past few days he has had some exertional shortness of breath. However he has not had any coughing, and has not felt wheezy. He does have chills at baseline, though has not measured any fevers and denies having any night sweats. He notes his appetite is at baseline and that he generally eats well. He does note that he is Priestly had a history of aspiration pneumonia, though denies that he's had any episodes of choking recently. In the ED, CT brain was normal. Consolidation was noted on chest x-ray, so the patient was treated with first doses of aztreonam, Levaquin and tobramycin. HOSPITAL COURSE: (1) Transient ischemic attack Did not receive tPA during admission, as he was out of window period. His workup was normal. He was reviewed by Neurology as well, who recommended changing his Aspirin to Plavix - further recc's above. HbA1c 5.4% TC 89, Triglycerides 92, LDL 29, HDL 42, Chol/HDL 2.1 - Not for high dose statin Did well with PT / OT, advised to continue as outpt (2) Consolidation on Xray Unlikely pneumonia. Had 2 Procalcitonins that were negative. Monitor clinically with repeat XRay in few weeks. (3) History of airway aspiration Thick diet. (4) Hypertension Nos No medication changes. (5) Gastroesophageal reflux disease No medication changes. (6) Hyperlipidemia Nec/Nos Continue statin. (7) Spinal stenosis Continue gabapentin Naproxen when necessary, per home meds (8) Overactive bladder Continue Mirbetric (9) BPH (benign prostatic hyperplasia) Continue tamsulosin DVT Prophylaxis - Lovenox 40 mg daily - SCD Code Status - Level I Disposition Discharged home on 08/09/16 Total Time Spent: Greater than 30 minutes This includes examination of the patient, discharge planning, medication reconciliation, and communication with other providers. (Allison Lazar MD) Resident Physician Supervision Note: I was present with Dr. Lazar during the history and exam. I discussed the case with the resident and agree with the findings and plan as documented in the note. Any exceptions or clarifications are listed here: Documented By: González Schmid Total Time Spent: Less than 30 minutes (González Schmid.,D.O.) Discharge Instructions Please refer to the electronic Patient Visit Report (Discharge Instructions) for additional information. (Allison Lazar MD) Follow-Up With Dr Briseno within 1 week. (Allison Lzaar MD) Additional Copies To Terrell Briseno M.D. Resident Tracking Resident Involvement: Resident Care Provided Care Provided: Adult [facility] (Allison Lazar MD)
[2016-08-09 15:10] VITALS: BP 134/77; PULSE 66; TEMP 37.4; O2SAT 95
--- NOTE | 2016-08-09 15:55 | ECHOCARDIOGRAM REPORT ---
*NOTICE TO RECEIVING [employer]Y This information is strictly Confidential and protected under [place] law. [place] law prohibits you from making any further disclosure of this information unless further disclosure is expressly permitted by the written consent of the person to whom it pertains or is authorized by law. A general authorization for the release of medical or other information is not sufficient for this purpose. Hospital accepts no responsibility if the information is made available to any other person, INCLUDING THE PATIENT. Interpretation Summary * Name: RACHEL NORWOOD Study Date: 08/09/2016 11:35 AM BP: 116/70 mmHg * Patient Location: [facility]\S\N285\S\1 HR: 82 * : 1925 (M/d/yyyy) Gender: Male Height: 70 in * Age: 89 yrs Ethnicity: [place] Weight: 165 lb * Ordering Physician: Juan Carlos Oliver * Referring Physician: Self, Referred * Performed By: Sonja Lee RUST * * Reason For Study: CVA SX / EVAL FOR THROMBUS * BSA: 1.9 m2 * -- Conclusions -- * There is mild asymmetric left ventricular hypertrophy. * Left ventricular systolic function is normal. * Injection of contrast documented no interatrial shunt. * Mild aortic regurgitation. Procedure Details * A complete two-dimensional transthoracic echocardiogram was performed (2D, M-mode, Doppler and color flow Doppler). Left Ventricle * The left ventricle is grossly normal size. * There is mild asymmetric left ventricular hypertrophy. * The basal septum is thickened and angulated consistent with sigmoid septum. * Left ventricular systolic function is normal. * Ejection Fraction = 55-60%. Right Ventricle * The right ventricle is normal in size and function. Atria * The left atrium is borderline dilated. * Right atrial size is normal. * Injection of contrast documented no interatrial shunt. Mitral Valve * The mitral valve is grossly normal. * Significant mitral regurgitation is absent. Tricuspid Valve * The tricuspid valve is not well visualized, but is grossly normal. * There is mild tricuspid regurgitation. * Right ventricular systolic pressure is normal. Aortic Valve * The aortic valve is trileaflet. * The aortic valve is normal in structure and function. * No hemodynamically significant valvular aortic stenosis. * Mild aortic regurgitation. Great Vessels * The aortic root is normal size. Pericardium/Pleural * There is no pericardial effusion. Great Vessels * Normal inferior vena cava diameter and respiratory variation suggests normal central venous pressure. MMode 2D Measurements and Calculations IVSd 1.3 cm IVSs 1.6 cm LVIDd 4.9 cm LVIDs 3.0 cm LVPWd 1.0 cm LVPWs 1.6 cm IVS/LVPW 1.3 FS 37.8 % EDV(Teich) 112.5 ml ESV(Teich) 36.2 ml EF(Teich) 67.8 % EDV(cubed) 117.2 ml ESV(cubed) 28.1 ml EF(cubed) 76.0 % % IVS thick 18.0 % % LVPW thick 54.2 % LV mass(C)d 221.0 grams LV mass(C)dI 114.9 grams/m\S\2 LV mass(C)s 175.3 grams LV mass(C)sI 91.1 grams/m\S\2 SV(Teich) 76.3 ml SI(Teich) 39.7 ml/m\S\2 SV(cubed) 89.1 ml SI(cubed) 46.3 ml/m\S\2 Ao root diam 3.3 cm Ao root area 8.6 cm\S\2 LA dimension 3.9 cm LA/Ao 1.2 LVOT diam 2.0 cm LVOT area 3.1 cm\S\2 Doppler Measurements and Calculations MV E max gael 56.1 cm/sec MV A max gael 104.1 cm/sec MV E/A 0.54 MV P1/2t max gael 78.9 cm/sec MV P1/2t 88.1 msec MVA(P1/2t) 2.5 cm\S\2 MV dec slope 262.2 cm/sec\S\2 MV dec time 0.25 sec Ao V2 max 115.4 cm/sec Ao max PG 5.3 mmHg Ao max PG (full) 1.4 mmHg JUAN LUIS(V,A) 2.7 cm\S\2 JUAN LUIS(V,D) 2.7 cm\S\2 AI max gael 308.4 cm/sec AI max PG 38.0 mmHg AI dec slope 205.6 cm/sec\S\2 AI P1/2t 439.4 msec LV V1 max PG 3.9 mmHg LV V1 max 98.7 cm/sec PA V2 max 85.3 cm/sec PA max PG 2.9 mmHg PI max geal 167.1 cm/sec PI max PG 11.2 mmHg PI dec slope 133.2 cm/sec\S\2 PI P1/2t 367.6 msec TR max gael 239.5 cm/sec
[2016-08-09 16:05] VITALS: BP 134/77; PULSE 66; TEMP 37.4; O2SAT 95
[2016-08-09] MEDS ORDERED: SIMVASTATIN 40 MG TAB PO SCH (21:00)
[2016-08-09] MEDS ORDERED: RANITIDINE HCL 150 MG TAB PO SCH (21:00)
[2016-08-10] MEDS ORDERED: LEVO-366 PO (16:59)
[2016-08-10] MEDS ORDERED: LEVOFLOXACIN / D5W 750 MG in PREMIXED IN D5W 150 ML IV SCH (22:00)
[2016-12-02] MEDS ORDERED: LOSA50TA6 PO (04:09)
[2016-12-02] MEDS ORDERED: NAPR1TAB9 PO (09:49)
[2016-12-02] MEDS ORDERED: CLOP1TAB15 PO (10:51)
[2016-12-02] MEDS ORDERED: METH500T3 PO (13:04)
== END 2016-08-09 16:39 | disposition home or self-care (01) | DRG 69 ==
LOC: C.EDB 19:18 → C.MED 22:25 → ENRESERV 22:47
PROVIDERS: ADMIT Student in an Organized Health Care Education/Training Program; ATTEND Internal Medicine
DX: G45.9 Transient cerebral ischemic attack, unspecified (principal); I10 Essential (primary) hypertension; K21.9 Gastro-esophageal reflux disease without esophagitis; E78.5 Hyperlipidemia, unspecified; N40.0 Benign prostatic hyperplasia without lower urinary tract symptoms; Z79.82 Long term (current) use of aspirin; Z79.899 Other long term (current) drug therapy; Z82.3 Family history of stroke; Z87.891 Personal history of nicotine dependence; Z98.890 Other specified postprocedural states

== ENCOUNTER 2016-08-10 10:29 | Emergency (ER) | payer OTHER ==
[~2016-08-10] VITALS: Ht 177.8 cm; Wt 74.0 kg
[~2016-08-10 10:29] MED LIST changes: -ASPI-435 PO; +BIMA0.01 OPB; +CLOP1TAB15 PO; +FLM4 PO; -FLNIN/; +MIRA1TAB3 PO; +NRN100 PO; -NXM/40 PO; +SNG10 PO
[2016-08-10] MEDS ORDERED: SODIUM CHLORIDE 0.9% 1000ML 1,000 ML IV SCH (11:05)
[2016-08-10 11:32] VITALS: O2SAT 98
[2016-08-10 11:34] VITALS: Ht 177.8 cm; Wt 74.0 kg
[2016-08-10 11:51] LABS: BASO % 0.4 %; BASO ABS # 0.03 K/uL (0-0.2); COMPLETE YES; EOS % 2.5 %; HEMATOCRIT 42.3 % (42-52); IG% 0.1 %; LYMPH % 10.1 %; LYMPH ABS # 0.78 K/uL (1.2-3.4); MEAN CELL VOLUME 95.9 fL (80-100); MEAN CORPUSCULAR HGB CONC 35.5 g/dl (32-36); MEAN PLATELET VOLUME 10.5 fL (7.4-10.4); MONO % 9.6 %; NEUT % 77.3 %; PLATELET COUNT 154 K/uL (130-400); RED BLOOD COUNT 4.41 M/uL (4.7-6.1); WHITE BLOOD COUNT 7.71 K/uL (4.8-10.8)
[2016-08-10 12:02] LABS: PARTIAL THROMBOPLASTIN RATIO 1.2; PROTHROMBIN TIME (PATIENT) 10.6 SECONDS (9.0-12.0)
--- NOTE | 2016-08-10 12:06 | DIAGNOSTIC IMAGING REPORT ---
CT SCAN OF THE BRAIN WITHOUT IV CONTRAST CLINICAL HISTORY: Strokelike symptoms. Slurred speech. COMPARISON STUDY: CT of the brain dated 08/08/2016. MRI of the brain dated 08/09/2016. TECHNIQUE: Unenhanced axial CT scan of the brain is performed from the vertex to the skull base. CT DOSE: 614.27 mGy.cm FINDINGS: Brain parenchyma: There are age-related involutional changes noting moderate patchy subcortical and periventricular microangiopathic change. There is no hemorrhage, mass effect, or evidence of acute territorial ischemia by CT criteria. Griffin-white matter is preserved. No extra-axial fluid collection is seen. Ventricles, sulci, cisterns: Prominent secondary to involutional change. Intracranial vasculature: There is atherosclerotic calcification of the cavernous carotid and vertebral arteries. Calvarium: Unremarkable. Sinuses and mastoids: The visualized paranasal sinuses are clear. The mastoid air cells are well pneumatized. Orbits: The bony orbits are grossly intact. There are bilateral ocular lens implants. IMPRESSION: Senescent changes as above with no hemorrhage, mass effect, or evidence of acute territorial ischemia by CT criteria. No change from recent prior studies. Electronically signed by: Sarthak Zhao M.D. 08/10/2016 12:04 PM Dictated Date/Time: 08/10/2016 12:02 PM
[2016-08-10 12:15] LABS: BLOOD UREA NITROGEN 26 mg/dl (7-18); BUN/CREATININE RATIO 26.3 (10-20); CALCIUM 8.3 mg/dl (8.5-10.1); CARBON DIOXIDE 24 mmol/L (21-32); CHLORIDE 111 mmol/L (98-107); CKMB/CK RATIO 3.2 (0-3.0); GLUCOSE 102 mg/dl (70-99); POTASSIUM 3.8 mmol/L (3.5-5.1); SODIUM 143 mmol/L (136-145)
[2016-08-10 12:53] LABS: URINE APPEARANCE CLEAR (CLEAR); URINE BILIRUBIN NEG (NEG); URINE COLOR YELLOW; URINE EPITHELIAL CELL AUTO 0-5 /lpf (0-5); URINE NITRITE NEG (NEG); UROBILINOGEN NEG (NEG); ZZUR CULT IF INDIC CLEAN CATCH NO
[2016-08-10 12:59] LABS: MANUAL MICROSCOPIC REQUIRED? NO; REVIEW REQ? NO
[2016-08-10] MEDS ORDERED: CLOPIDOGREL BISULFATE 300 MG TAB PO STA (13:35)
--- NOTE | 2016-08-10 13:54 | DIAGNOSTIC IMAGING REPORT ---
CHEST ONE VIEW PORTABLE CLINICAL HISTORY: follow up for infiltrate on prior cx pneumonia COMPARISON STUDY: 08/08/2016 FINDINGS: Persistent parenchymal infiltrative change left midlung region. Lungs otherwise appear clear. Diaphragms smooth. IMPRESSION: Persistent parenchymal infiltrate left midlung versus the less likely possibility of a developing nodular pathology. Repeat chest film is recommended 10-14 days. If it does not resolve, CT study would be suggested. Electronically signed by: Gurpreet Tello M.D. 08/10/2016 1:53 PM Dictated Date/Time: 08/10/2016 1:51 PM
--- NOTE | 2016-08-10 15:22 | DIAGNOSTIC IMAGING REPORT ---
CHEST CT WITHOUT CONTRAST CT DOSE: 314.19 mGy.cm HISTORY: Pneumonia eval left infiltrate TECHNIQUE: Multiaxial CT images of the chest were performed without contrast. COMPARISON: Chest series same date FINDINGS: Poorly defined minimal parenchymal infiltrate left perihilar and left upper lobe region. No consolidative findings. Several small reactive mediastinal and/or hilar nodes measuring no more than 6 mm. Mild tortuosity and ectasia thoracic aorta. Right lung is considered clear. The left base and left pulmonary apex are considered clear. IMPRESSION: Patchy parenchymal infiltrate left midlung Electronically signed by: Gurpreet Tello M.D. 08/10/2016 3:21 PM Dictated Date/Time: 08/10/2016 3:14 PM
[2016-08-10] MEDS ORDERED: LEVOFLOXACIN 250 MG TAB PO STA (16:14)
[2016-08-10] MEDS ORDERED: LEVO-366 PO (16:59)
[2016-08-10 17:12] VITALS: BP 138/87; PULSE 76; TEMP 36.5; O2SAT 94
--- NOTE | 2016-08-10 17:40 | EMERGENCY ROOM VISIT NOTE ---
History Report prepared by Abram: Richa Carlton Under the Supervision of: Dr. Mal Nolan M.D. First contact with patient: 10:42 Chief Complaint: STROKE SYMPTOMS Stated Complaint: SLURRED SPEECH History of Present Illness The patient is an 89 year old male who presents to the Emergency Room with complaints of worsening slurred speech since yesterday. The patient reports that he was evaluated in the hospital and discharged yesterday for a recent TIA. He states that yesterday he lost his balance and fell around 1830. The patient states that he has chronic right leg weakness due to a previous surgery. He states that since then he has had balance issues. The patient states that when he fell he bumped his back, but denies any head injury. He states that this morning he went to see a nurse at the [facility] and was noted to have increased slurred speech from yesterday. The patient's son states that the patient's right sided facial droop has been present since his TIA. He reports that the patient's speech has been increasingly slurred since yesterday , but states that it is much better than when his initial stroke symptoms began. The patient's son states that the patient has not been alone since he was home, noting that the patient resides with his . Pt denies LOC, headache, fevers, chills, diaphoresis, visual changes, neck pain, chest pain, breathing difficulties, nausea, vomiting, abdominal pain, back pain, melena, hematochezia, urinary symptoms, numbness, lymphadenopathy, rash, or other complaints. Source of History: patient, family (son) Onset: yesterday Position: other (global) Quality: other (slurred speech) Timing: worsening Associated Symptoms: + weakness (chronic right leg) Note: Associated Symptoms: recent fall Review of Systems See HPI for pertinent positives and negatives. A total of ten systems were reviewed and were otherwise negative. Past Medical & Surgical Medical Problems: (1) Benign hypertension (2) BPH (benign prostatic hyperplasia) (3) Cholecystectomy (4) Esophageal Reflux (5) Facial droop (6) Gastroesophageal reflux disease (7) History of airway aspiration (8) Hyperlipidemia (9) Hyperlipidemia Nec/Nos (10) Hypertension Nos (11) Overactive bladder (12) Skin problems (13) Spinal stenosis (14) transurethral transection (15) Weakness Family History Hypertension Stroke or transient ischemic attack in son Social History Smoking Status: Former Smoker Alcohol Use: occasionally Drug Use: none Marital Status: Housing Status: lives with family Occupation Status: retired Current/Historical Medications Scheduled Acetaminophen (Tylenol), 500 MG PO DAILY Atenolol (Tenormin), 50 MG PO DAILY Bimatoprost (Lumigan), 1 DROP OPR DAILY Clopidogrel (Plavix), 75 MG PO DAILY Cyclosporine (Ophth) (Restasis), 1 DROP OP UD Esomeprazole Magnesium (Nexium), 40 MG PO BID Gabapentin (Gabapentin), 100 MG PO BID Levofloxacin (Levaquin), 500 MG PO DAILY Losartan Potassium (Cozaar), 50 MG PO DAILY Methylcellulose (Laxative) (Citrucel), 500 MG PO DAILY Mirabegron (Myrbetriq Er), 50 MG PO DAILY Ranitidine Hcl (Zantac), 300 MG PO HS Simvastatin (Zocor), 40 MG PO QPM Tamsulosin HCl (Tamsulosin HCl), 1 TAB PO DAILY Scheduled PRN Calcium Carbonate (Antacid) (Tums), 1-2 TABS PO DAILY PRN for Heartburn Cetirizine (Zyrtec), 10 MG PO DAILY PRN for ALLERGY SEASON Montelukast Sod (Montelukast Sodium), 10 MG PO DAILY PRN for ALLERGIC REACTION Naproxen (Aleve), 220 MG PO Q12 PRN for Pain Allergies Coded Allergies: Azithromycin (Verified Allergy, Unknown, PER H&P 05/20/11, 07/30/14) Erythromycin (Verified Allergy, Unknown, unknown, 07/30/14) Indomethacin (Verified Allergy, Unknown, PER ADMISSION ORDERS 05/20/11, TAKES NAPROXEN OTC, 07/30/14) Metformin (Verified Allergy, Unknown, PER H&P 05/20/11, 07/30/14) Penicillins (Verified Allergy, Unknown, UNKNOWN, 07/30/14) Rosiglitazone (Verified Allergy, Unknown, PER H&P 05/20/11, 07/30/14) Physical Exam Vital Signs Date Time Temp Pulse Resp B/P (MAP) Pulse Ox O2 Delivery O2 Flow Rate FiO2 08/10/16 17:12 36.5 76 19 138/87 94 08/10/16 16:08 76 138/87 08/10/16 14:58 74 19 08/10/16 14:53 69 18 08/10/16 14:48 70 19 08/10/16 14:43 71 16 08/10/16 14:38 71 17 08/10/16 14:33 73 16 08/10/16 14:28 71 24 08/10/16 14:23 69 26 08/10/16 14:18 71 17 08/10/16 14:13 71 21 94 08/10/16 14:08 71 19 97 08/10/16 14:03 71 16 89 08/10/16 13:58 70 27 97 08/10/16 13:53 72 20 08/10/16 13:48 72 16 97 08/10/16 13:43 72 15 97 08/10/16 13:38 70 17 96 08/10/16 13:33 66 23 94 08/10/16 13:29 70 08/10/16 13:28 67 18 98 08/10/16 13:27 138/87 08/10/16 12:08 160/92 08/10/16 11:39 73 23 08/10/16 11:34 76 23 08/10/16 11:32 98 Room Air 08/10/16 11:29 77 22 08/10/16 11:24 72 20 08/10/16 11:19 76 15 97 08/10/16 11:14 69 17 97 08/10/16 11:09 74 21 96 08/10/16 11:07 72 08/10/16 11:01 160/92 08/10/16 10:31 36.5 79 22 166/87 96 Room Air Physical Exam GENERAL: Awake, alert, well-appearing, in no distress HENT: Normocephalic, atraumatic. Oropharynx unremarkable. EYES: Normal conjunctiva. Sclera non-icteric. NECK: Supple. No nuchal rigidity. FROM. No JVD. RESPIRATORY: Clear to auscultation. CARDIAC: Regular rate, normal rhythm. Extremities warm and well perfused. Pulses equal. ABDOMEN: Soft, non-distended. No tenderness to palpation. No rebound or guarding. No masses. RECTAL: Deferred. MUSCULOSKELETAL: Chest examination reveals no tenderness. The back is symmetrical on inspection without obvious abnormality. There is no CVA tenderness to palpation. No joint edema. LOWER EXTREMITIES: Calves are equal size bilaterally and non-tender. No edema. No discoloration. NEURO: Normal sensorium. Slight weakness in the right leg, no drift. Right sided facial droop, mildly slurred speech. SKIN: No rash or jaundice noted. Medical Decision & Procedures ER Provider Diagnostic Interpretation: Radiology results as stated below per my review and radiologist interpretation: CT SCAN OF THE BRAIN WITHOUT IV CONTRAST CLINICAL HISTORY: Strokelike symptoms. Slurred speech. COMPARISON STUDY: CT of the brain dated 08/08/2016. MRI of the brain dated 08/09/2016. TECHNIQUE: Unenhanced axial CT scan of the brain is performed from the vertex to the skull base. CT DOSE: 614.27 mGy.cm FINDINGS: Brain parenchyma: There are age-related involutional changes noting moderate patchy subcortical and periventricular microangiopathic change. There is no hemorrhage, mass effect, or evidence of acute territorial ischemia by CT criteria. Griffin-white matter is preserved. No extra-axial fluid collection is seen. Ventricles, sulci, cisterns: Prominent secondary to involutional change. Intracranial vasculature: There is atherosclerotic calcification of the cavernous carotid and vertebral arteries. Calvarium: Unremarkable. Sinuses and mastoids: The visualized paranasal sinuses are clear. The mastoid air cells are well pneumatized. Orbits: The bony orbits are grossly intact. There are bilateral ocular lens implants. IMPRESSION: Senescent changes as above with no hemorrhage, mass effect, or evidence of acute territorial ischemia by CT criteria. No change from recent prior studies. Electronically signed by: Sarthak Zhao M.D. 08/10/2016 12:04 PM Dictated Date/Time: 08/10/2016 12:02 PM CHEST ONE VIEW PORTABLE CLINICAL HISTORY: follow up for infiltrate on prior cx pneumonia COMPARISON STUDY: 08/08/2016 FINDINGS: Persistent parenchymal infiltrative change left midlung region. Lungs otherwise appear clear. Diaphragms smooth. IMPRESSION: Persistent parenchymal infiltrate left midlung versus the less likely possibility of a developing nodular pathology. Repeat chest film is recommended 10-14 days. If it does not resolve, CT study would be suggested. Electronically signed by: Gurpreet Tello M.D. 08/10/2016 1:53 PM Dictated Date/Time: 08/10/2016 1:[address] WITHOUT CONTRAST CT DOSE: 314.19 mGy.cm HISTORY: Pneumonia eval left infiltrate TECHNIQUE: Multiaxial CT images of the chest were performed without contrast. COMPARISON: Chest series same date FINDINGS: Poorly defined minimal parenchymal infiltrate left perihilar and left upper lobe region. No consolidative findings. Several small reactive mediastinal and/or hilar nodes measuring no more than 6 mm. Mild tortuosity and ectasia thoracic aorta. Right lung is considered clear. The left base and left pulmonary apex are considered clear. IMPRESSION: Patchy parenchymal infiltrate left midlung Electronically signed by: Gurpreet Tello M.D. 08/10/2016 3:21 PM Dictated Date/Time: 08/10/2016 3:14 PM Laboratory Results 08/10/16 11:25 Red Blood Count 4.41, Mean Corpuscular Volume 95.9, Mean Corpuscular Hemoglobin 34.0, Mean Corpuscular Hemoglobin Concent 35.5, Mean Platelet Volume 10.5, Neutrophils (%) (Auto) 77.3, Lymphocytes (%) (Auto) 10.1, Monocytes (%) (Auto) 9.6, Eosinophils (%) (Auto) 2.5, Basophils (%) (Auto) 0.4, Neutrophils # (Auto) 5.96, Lymphocytes # (Auto) 0.78, Monocytes # (Auto) 0.74, Eosinophils # (Auto) 0.19, Basophils # (Auto) 0.03 08/10/16 11:25 Test 08/10/16 11:25 08/10/16 12:12 White Blood Count 7.71 K/uL (4.8-10.8) Red Blood Count 4.41 M/uL (4.7-6.1) Hemoglobin 15.0 g/dL (14.0-18.0) Hematocrit 42.3 % (42-52) Mean Corpuscular Volume 95.9 fL (80-100) Mean Corpuscular Hemoglobin 34.0 pg (25-34) Mean Corpuscular Hemoglobin Concent 35.5 g/dl (32-36) Platelet Count 154 K/uL (130-400) Mean Platelet Volume 10.5 fL (7.4-10.4) Neutrophils (%) (Auto) 77.3 % Lymphocytes (%) (Auto) 10.1 % Monocytes (%) (Auto) 9.6 % Eosinophils (%) (Auto) 2.5 % Basophils (%) (Auto) 0.4 % Neutrophils # (Auto) 5.96 K/uL (1.4-6.5) Lymphocytes # (Auto) 0.78 K/uL (1.2-3.4) Monocytes # (Auto) 0.74 K/uL (0.11-0.59) Eosinophils # (Auto) 0.19 K/uL (0-0.5) Basophils # (Auto) 0.03 K/uL (0-0.2) RDW Standard Deviation 44.9 fL (36.4-46.3) RDW Coefficient of Variation 12.9 % (11.5-14.5) Immature Granulocyte % (Auto) 0.1 % Immature Granulocyte # (Auto) 0.01 K/uL (0.00-0.02) Prothrombin Time 10.6 SECONDS (9.0-12.0) Prothromb Time International Ratio 1.0 (0.9-1.1) Activated Partial Thromboplast Time 29.9 SECONDS (21.0-31.0) Partial Thromboplastin Ratio 1.2 Anion Gap 8.0 mmol/L (3-11) Est Creatinine Clear Calc Drug Dose 52.7 ml/min Estimated GFR () 77.5 Estimated GFR (Non- 66.9 BUN/Creatinine Ratio 26.3 (10-20) Calcium Level 8.3 mg/dl (8.5-10.1) Total Creatine Kinase 101 U/L (39-308) Creatine Kinase MB 3.2 ng/ml (0.5-3.6) Creatine Kinase MB Ratio 3.2 (0-3.0) Troponin I < 0.015 ng/ml (0-0.045) Chemistry Specimen Hemolysis Urine Color YELLOW Urine Appearance CLEAR (CLEAR) Urine pH 5.0 (4.5-7.5) Urine Specific [place] 1.020 (1.000-1.030) Urine Protein NEG (NEG) Urine Glucose (UA) NEG (NEG) Urine Ketones NEG (NEG) Urine Occult Blood TRACE (NEG) Urine Nitrite NEG (NEG) Urine Bilirubin NEG (NEG) Urine Urobilinogen NEG (NEG) Urine Leukocyte Esterase NEG (NEG) Urine WBC (Auto) 1-5 /hpf (0-5) Urine RBC (Auto) 5-10 /hpf (0-4) Urine Hyaline Casts (Auto) 1-5 /lpf (0-5) Urine Epithelial Cells (Auto) 0-5 /lpf (0-5) Urine Bacteria (Auto) NEG (NEG) Laboratory results reviewed by me Medications Administered Medications (Trade) Dose Ordered Sig/Daya Route Start Time Stop Time Status Last Admin Dose Admin Sodium Chloride 1,000 ml @ 50 mls/hr Q20H IV 08/10/16 11:05 09/09/16 11:04 08/10/16 11:33 50 MLS/HR Clopidogrel Bisulfate (plAVix TAB) 300 mg NOW STAT PO 08/10/16 13:35 08/10/16 13:39 DC 08/10/16 14:17 300 MG Levofloxacin (Levaquin Tab) 500 mg NOW STAT PO 08/10/16 16:14 08/10/16 16:16 DC 08/10/16 16:25 500 MG ECG Indication: weakness Rate (beats per minute): 71 Rhythm: sinus rhythm Findings: PVC, no acute ischemic change ED Course 1059: The patient was evaluated in room A9B. A complete history and physical exam was performed. 1105: Ordered Sodium Chloride 1000 ml @ 50 mls/hr IV. 1330: I discussed the patients case with Dr. Chandler, Neurology. He recommends treating the patient as an outpatient with Plavix. He states that he will see the patient as an outpatient. 1335: Ordered Plavix Tab 300 mg PO. 1338: I reevaluated the patient and he is resting comfortably. I discussed the exam findings with him and I discussed the treatment plan. He verbalized complete understanding and agreement. 1614: Ordered Levofloxacin 500 mg PO. 1622: I reevaluated the patient and he is doing well. I discussed all the exam findings with him and I discussed the treatment plan. He verbalized complete understanding and agreement. He is ready to go home. Medical Decision Medication Reconciliation: I attest that I have personally reviewed the patient' s current medication list Blood pressure screening: Patient was found to have an elevated blood pressure and was referred to their primary doctor for recheck and further treatment. Triage Nursing notes reviewed. The patient's presentation and history were concerning for slurred speech and recent stroke. Etiologies such as TIA, CVA, metabolic, infection, hypo/hyperglycemia, electrolyte abnormalities, cardiac sources, intracerebral event, toxicologic, neurologic, as well as others were entertained. The patient was evaluated. He had a right-sided facial droop which was known from prior event. Family states that his speech seems to be better. The patient was doing well on reassessment. His head CT did not reveal any acute findings. The patient had an abnormal chest x-ray. CT scan of the chest was performed and this was concerning for a small infiltrate. The patient did receive IV Levaquin in the hospital. I will continue this and he will need follow-up as an outpatient. I consulted with neurology, Dr. Chandler based upon the stuttering stroke symptoms. He felt that the patient's workup was complete in the hospital and recommended loading him with Plavix, 300 mg. He did not feel additional inpatient treatment was warranted at this point in time. The patient did well with the Plavix. Prior to discharge he was at his baseline. The patient will be prescribed Levaquin as an outpatient. He will continue 75 mg of Plavix. He'll follow-up with his primary office and return if she has any issues. The patient felt comfortable with this plan. Family was comfortable as well. I gave my usual and customary discussion regarding this issue. Consults Time Called: 1322 Consulting Physician: Dr. Chandler, Neurology Returned Call: 1330 I discussed the patients case with Dr. Chandler, Neurology. He recommends treating the patient as an outpatient with Plavix. He states that he will see the patient as an outpatient. Impression Primary Impression: TIA (transient ischemic attack) Additional Impression: Pneumonia Scribe Attestation The scribe's documentation has been prepared under my direction and personally reviewed by me in its entirety. I confirm that the note above accurately reflects all work, treatment, procedures, and medical decision making performed by me. Departure Information Dispostion Home / Self-Care Prescriptions Levofloxacin (Levaquin) 500 Mg Tab 500 MG PO DAILY for 7 Days, #7 TAB Prov: Mal Nolan MD 08/10/16 Referrals Terrell Briseno M.D. (PCP) Forms HOME CARE DOCUMENTATION FORM, IMPORTANT VISIT INFORMATION Patient Instructions My [facility] Additional Instructions Levafloxacin(Levaquin) 500mg: Take one pill daily for 7 days for your infection. All antibiotics can cause diarrhea. If this occurs and you feel worse or it does not resolve in 1-2 days follow up with your doctor or return to the Emergency Department as this could be signs of serious underlying problems. Any medication can cause an allergic reaction, stop the pills immediately and return to the ER for rash, hives, breathing difficulties, or swelling. Acetaminophen(Tylenol) may be used for fever or pain. Use 1000mg every six hours as needed. Avoid using more than 4000mg in a 24 hour period. Controlling your fever with Tylenol and Ibuprofen as above will make you feel better. Continue the Plavix as directed. Review the package insert for all your medications. This is necessary as important health information is provided for your benefit and current care. Rest and drink plenty of fluids. Avoid strenuous activity until your symptoms resolve and your breathing returns to normal. Return to the ER for chest pain, difficulty breathing, persistent fevers, vomiting, worsening of your condition, or as needed. Follow up with your primary physician in 2-3 days for a recheck of the current condition. Stroke History Time Last Known Well yesterday Stroke t-PA Criteria Reviewed Does NOT meet criteria for t-PA Reason t-PA Not Given Treatment not indicated Problem Qualifiers
[2016-12-02] MEDS ORDERED: LOSA50TA6 PO (04:09)
[2016-12-02] MEDS ORDERED: NAPR1TAB9 PO (09:49)
[2016-12-02] MEDS ORDERED: CLOP1TAB15 PO (10:51)
[2016-12-02] MEDS ORDERED: METH500T3 PO (13:04)
== END 2016-08-10 17:13 | disposition home or self-care (01) ==
LOC: C.EDB 10:30 → C.EDA 17:13
DX: G45.9 Transient cerebral ischemic attack, unspecified (principal); R47.81 Slurred speech; R29.810 Facial weakness; J18.9 Pneumonia, unspecified organism; I10 Essential (primary) hypertension; N40.0 Benign prostatic hyperplasia without lower urinary tract symptoms; K21.9 Gastro-esophageal reflux disease without esophagitis; E78.5 Hyperlipidemia, unspecified; M48.00 Spinal stenosis, site unspecified; Z82.49 Family history of ischemic heart disease and other diseases of the circulatory system; Z87.891 Personal history of nicotine dependence; Z79.02 Long term (current) use of antithrombotics/antiplatelets; Z79.899 Other long term (current) drug therapy

== ENCOUNTER → 2016-08-19 | Outpatient (CLI) | payer OTHER ==
[~2016-08-19] MED LIST changes: +ATEN50TA8 PO; -BIMA0.01 OPB; +BIMA0.01 OPR; +CETI10TA84 PO; +CYCL0.052 OP; +LOSA50TA6 PO; +METH500T3 PO; +NAPR1TAB9 PO; +NXM/40 PO; +RANI300T PO; +SIMV40TA2 PO
[2016-08-19 12:13] LABS: LYME DISEASE AB IGG NEG (NEG); LYME DISEASE AB IGM NEG (NEG)
[2016-08-21 23:39] LABS: RECEPTOR BINDING AB <0.30 nmol/L (<=0.30)
== END | disposition home or self-care (01) ==
LOC: C.LABVPSUW 09:18
PROVIDERS: ATTEND Internal Medicine Critical Care Medicine
DX: G70.00 Myasthenia gravis without (acute) exacerbation (principal); G70.80 Lambert-Eaton syndrome, unspecified

== ENCOUNTER → 2016-09-20 | Outpatient (CLI) | payer OTHER ==
[~2016-09-20] MED LIST changes: +BIMA0.01 OPB; -BIMA0.01 OPR; +CYCL5TAB PO; +IBUP-1050 PO; +MULT-190 PO; +PURELAX PO; +TAMS0.4C38 PO
--- NOTE | 2016-09-20 13:08 | DIAGNOSTIC IMAGING REPORT ---
(CHEST) THORAX WITHOUT CT DOSE: 323.29 mGy.cm HISTORY: Lung nodule. Infiltrate. PULMONARY NODULE TECHNIQUE: Multiaxial CT images of the chest were performed without contrast. A dose lowering technique was utilized adhering to the principles of ALARA. COMPARISON: 08/10/2016 FINDINGS: Interval resolution of the left midlung infiltrate. Lungs currently are considered clear. No significant hilar or mediastinal adenopathy. Minimal atherosclerotic change thoracic aorta. Upper abdomen is generally unremarkable postcholecystectomy. IMPRESSION: 1. Lungs are now considered clear. 2. Negative CT of the chest. The above report was generated using voice recognition software. It may contain grammatical, syntax or spelling errors. Electronically signed by: Gurpreet Tello M.D. 09/20/2016 1:07 PM Dictated Date/Time: 09/20/2016 1:04 PM
== END | disposition home or self-care (01) ==
LOC: C.CTS 12:40
PROVIDERS: ATTEND Physician Assistant
DX: R91.1 Solitary pulmonary nodule (principal)

== ENCOUNTER 2016-12-02 14:42 | Emergency (ER) | payer OTHER ==
[~2016-12-02] VITALS: Ht 177.8 cm; Wt 87.0 kg
[~2016-12-02 14:42] MED LIST changes: -ATEN50TA8 PO; -CETI10TA84 PO; -CYCL0.052 OP; -CYCL5TAB PO; -IBUP-1050 PO; -MULT-190 PO; -NXM/40 PO; -PURELAX PO; -RANI300T PO; -SIMV40TA2 PO; -TAMS0.4C38 PO
[2016-12-02 14:53] VITALS: TEMP 36.4; Ht 177.8 cm; Wt 87.0 kg
--- NOTE | 2016-12-02 15:11 | EMERGENCY ROOM VISIT NOTE ---
History Report prepared by Abram: Richa aCrlton Under the Supervision of: Dr. Timothy Akins M.D. First contact with patient: 15:00 Chief Complaint: FALL Stated Complaint: FALL History of Present Illness The patient is an 89 year old male who presents to the Emergency Room with complaints of a sudden fall that occurred just prior to arrival. [place] nursing staff, [place] the dog saw another dog the patient was pulled forward and then fell backwards, striking his head. Nursing staff states that this was a witnessed fall. Nursing staff reports that the patient had been repeating words and has been experiencing memory loss. The patient reports nausea and headache. He denies any neck pain , back pain, or hip pain. The patient states that he is on Plavix. Source of History: patient, nursing staff Onset: prior to arrival Position: other (global) Quality: other (fall) Timing: other (sudden) Associated Symptoms: + headache, + nausea, No neck pain, No back pain Note: Associated symptoms: repeating words, memory loss Review of Systems See HPI for pertinent positives & negatives. A total of 10 systems reviewed and were otherwise negative. Past Medical & Surgical Medical Problems: (1) Benign hypertension (2) BPH (benign prostatic hyperplasia) (3) Cholecystectomy (4) Esophageal Reflux (5) Facial droop (6) Gastroesophageal reflux disease (7) History of airway aspiration (8) Hyperlipidemia (9) Hyperlipidemia Nec/Nos (10) Hypertension Nos (11) Overactive bladder (12) Skin problems (13) Spinal stenosis (14) transurethral transection (15) Weakness Family History Hypertension Stroke or transient ischemic attack in son Social History Smoking Status: Former Smoker Alcohol Use: occasionally Drug Use: none Marital Status: Housing Status: lives with family Occupation Status: retired Current/Historical Medications Scheduled Atenolol (Tenormin), 50 MG PO DAILY Bimatoprost (Lumigan), 1 DROP OPB QPM Cetirizine (Zyrtec), 10 MG PO QPM Clopidogrel (Plavix), 75 MG PO DAILY Cyclobenzaprine Hcl (Flexeril), 1 TAB PO PRN UD Cyclosporine (Ophth) (Restasis), 1 DROP OP UD Esomeprazole Magnesium (Nexium), 40 MG PO BID Gabapentin (Gabapentin), 200 MG PO BID Losartan Potassium (Cozaar), 50 MG PO DAILY Methylcellulose (Laxative) (Citrucel), 500 MG PO DAILY Mirabegron (Myrbetriq Er), 50 MG PO DAILY Ocuvite Preservision (Ocuvite Preservision), 1 TAB PO BID Ranitidine Hcl (Zantac), 300 MG PO HS Simvastatin (Zocor), 40 MG PO QPM Tamsulosin Hcl (Flomax), 0.4 MG PO QPM [Purelax], 0.5 CAP PO QAM Scheduled PRN Ibuprofen (Advil), 200 MG PO QAM PRN for Headache or Pain Naproxen (Aleve), 220 MG PO Q12 PRN for Pain Allergies Coded Allergies: Azithromycin (Verified Allergy, Unknown, PER H&P 05/20/11, 07/30/14) Erythromycin (Verified Allergy, Unknown, unknown, 07/30/14) Indomethacin (Verified Allergy, Unknown, PER ADMISSION ORDERS 05/20/11, TAKES NAPROXEN OTC, 07/30/14) Metformin (Verified Allergy, Unknown, PER H&P 05/20/11, 07/30/14) Penicillins (Verified Allergy, Unknown, UNKNOWN, 07/30/14) Rosiglitazone (Verified Allergy, Unknown, PER H&P 05/20/11, 07/30/14) Physical Exam Vital Signs Date Time Temp Pulse Resp B/P (MAP) Pulse Ox O2 Delivery O2 Flow Rate FiO2 12/02/16 16:38 66 18 157/84 98 12/02/16 14:53 36.4 66 18 178/98 94 Room Air Physical Exam GENERAL: Patient is well appearing and in minimal distress. HEENT: Large abrasion/contusion to posterior scalp, no laceration, mucous membranes moist, no nasal congestion, no scleral icterus. NECK: No stridor, no adenopathy, no meningismus, trachea is midline. LUNGS: No dyspnea. Clear to auscultation and equal bilaterally. No wheeze, no rhonchi. HEART: Regular rate and rhythm. No murmurs, rubs, gallops appreciated. ABDOMEN: Soft, nontender, bowel sounds positive, no masses appreciated, no peritonitis. BACK: No midline tenderness, no CVA tenderness EXTREMITIES: Normal motion all extremities, no cyanosis, no edema. NEUROLOGIC: Alert and oriented, no acute motor or sensory deficits, no focal weakness, cranial nerves grossly intact. SKIN: No rash, no jaundice, no diaphoresis. Medical Decision & Procedures ER Provider Diagnostic Interpretation: Radiology results and stated below per my review and radiologist interpretation: HEAD WITHOUT CONTRAST (CT) CLINICAL HISTORY: 89 years-old Male presenting with posterior head injury. TECHNIQUE: Multidetector CT imaging of the head was performed without the use of intravenous contrast. IV contrast: None. A dose lowering technique was used consistent with the principles of ALARA (as low as reasonably achievable). COMPARISON: 08/10/2016. CT DOSE (mGy.cm): The estimated cumulative dose is 1086.54 mGy.cm. FINDINGS: Helicopter Dispatcher topogram: Unremarkable. Proportional ventricular and sulcal prominence, likely age-related parenchymal volume loss. Periventricular and subcortical white matter hypoattenuation, nonspecific but likely indicative of chronic small vessel ischemic change. No mass effect or midline shift. No hemorrhage or acute territorial infarct. No extra-axial fluid collection. Paranasal sinuses and mastoid air cells clear. Calvarium intact. Bilateral mechoopda lenses are absent. Minimal infiltration along the posterior subcutaneous tissue near the vertex. IMPRESSION: 1. No acute intracranial pathology. 2. Chronic small vessel ischemic change. 3. Minimal soft tissue contusion posteriorly near the vertex. Electronically signed by: Terrell Hurtado M.D. 12/02/2016 3:43 PM Dictated Date/Time: 12/02/2016 3:41 PM CERVICAL SPINE W/O CLINICAL HISTORY: 89 years-old Male presenting with posterior head injury. TECHNIQUE: Multidetector CT of the cervical spine was performed without the use of intravenous contrast. IV contrast: None. A dose lowering technique was used consistent with the principles of ALARA (as low as reasonably achievable). COMPARISON: None. CT DOSE (mGy.cm): The estimated cumulative dose is 1086.[address] head. FINDINGS: Helicopter Dispatcher topogram: Unremarkable. Normal cervical lordosis. Vertebral body heights essentially maintained. Minimal retrolisthesis of C5 on C6. Intervertebral disc height loss at C5-6 and C6-7. Multilevel degenerative changes noted with disc osteophyte complexes seen to varying degrees at every level. Prominent posterior bony spurring noted at C4-5 through C6-7. This results in mild spinal canal narrowing most severe at C5-6 and C6-7. Facet arthropathy also noted asymmetrically worse on the right. Degenerative changes of the atlantoaxial articulation with prominent pannus formation posteriorly. No acute fracture or subluxation. Prominent cystic change noted at the base of the odontoid process. Degenerative changes further detailed below: C2-3: Uncovertebral hypertrophy and facet arthropathy result in mild left osseous neural foraminal narrowing. C3-4: Uncovertebral hypertrophy and facet arthropathy result in moderate left osseous neural foraminal narrowing. C4-5: Uncovertebral hypertrophy and facet arthropathy result in moderate right osseous neural foraminal narrowing. C5-6: Disc osteophyte complex and uncovertebral hypertrophy result in severe bilateral osseous neural foraminal narrowing. Mild effacement of the ventral thecal sac. C6-7: Disc osteophyte complex and uncovertebral hypertrophy result in moderate bilateral osseous neural foraminal narrowing. Mild effacement of the ventral thecal sac also noted. C7-T1: Normal. Paraspinal soft tissues within normal limits. Atherosclerosis. Mild interlobular septal prominence at the lung apices. Lung apices otherwise clear. IMPRESSION: 1. No acute osseous injury of the cervical spine. 2. Multilevel degenerative changes with varying degrees of osseous neural foraminal and spinal canal narrowing as above. Electronically signed by: Terrell Hurtado M.D. 12/02/2016 3:51 PM Dictated Date/Time: 12/02/2016 3:45 PM Medications Administered Medications (Trade) Dose Ordered Sig/Daya Route Start Time Stop Time Status Last Admin Dose Admin Ondansetron HCl (Zofran Odt) 4 mg ONE ONCE PO 12/02/16 15:15 12/02/16 15:16 DC 12/02/16 15:13 4 MG Ondansetron HCl (ZOFRAN ODT 4MG Home Pack) 1 homepack UD ONCE PO 12/02/16 16:30 12/02/16 16:31 DC 12/02/16 16:32 1 HOMEPACK ED Course 1501: The patient was evaluated in room B6. A complete history and physical exam was performed. 1515: Ordered Zofran Odt 4 mg PO. 1615: I reevaluated the patient and he is resting comfortably. I discussed the exam findings with him and I discussed the treatment plan. He verbalized complete understanding and agreement. He is ready to go home. Family notes that the patient is back to baseline and acting normally. 1630: Ordered Ondansetron HCl 1 homepack PO. Medical Decision Differential diagnosis includes Concussion, mechanical fall, intracranial bleed , skull/cervical fracture, non-mechanical reason for fall. 89 yr old pleasant male with witnessed trip/fall due to getting tangled with dog leash. Struck back of head with no memory of what happened. Now completely back to baseline in no distress. No suspicious symptoms of ACS, PE, Stroke, etc. He looks well and is in no distress. CT head/neck are negative. Wound without need for closure. Tetanus up to date. He is in no distress and wishes to go home. Sons at bedside agree he is currently his normal self. Will have ppl with him next 24 hours. Reviewed symptoms requiring RTED. Medication Reconcilliation Current Medication List: was personally reviewed by me Blood Pressure Screening Patient's blood pressure: Elevated blood pressure Blood pressure disposition: Referred to PCP Impression Primary Impression: Head injury, closed Additional Impressions: Amnesia Concussion Scribe Attestation The scribe's documentation has been prepared under my direction and personally reviewed by me in its entirety. I confirm that the note above accurately reflects all work, treatment, procedures, and medical decision making performed by me. Departure Information Dispostion Home / Self-Care Referrals [facility] (PCP) Forms HOME CARE DOCUMENTATION FORM, IMPORTANT VISIT INFORMATION Patient Instructions ED Concussion, My [facility] Health Problem Qualifiers
[2016-12-02] MEDS ORDERED: ONDANSETRON 4MG OD TAB PO ONE (15:15)
--- NOTE | 2016-12-02 15:44 | DIAGNOSTIC IMAGING REPORT ---
HEAD WITHOUT CONTRAST (CT) CLINICAL HISTORY: 89 years-old Male presenting with posterior head injury. TECHNIQUE: Multidetector CT imaging of the head was performed without the use of intravenous contrast. IV contrast: None. A dose lowering technique was used consistent with the principles of ALARA (as low as reasonably achievable). COMPARISON: 08/10/2016. CT DOSE (mGy.cm): The estimated cumulative dose is 1086.54 mGy.cm. FINDINGS: Physician'S Aide topogram: Unremarkable. Proportional ventricular and sulcal prominence, likely age-related parenchymal volume loss. Periventricular and subcortical white matter hypoattenuation, nonspecific but likely indicative of chronic small vessel ischemic change. No mass effect or midline shift. No hemorrhage or acute territorial infarct. No extra-axial fluid collection. Paranasal sinuses and mastoid air cells clear. Calvarium intact. Bilateral cher-ae heights lenses are absent. Minimal infiltration along the posterior subcutaneous tissue near the vertex. IMPRESSION: 1. No acute intracranial pathology. 2. Chronic small vessel ischemic change. 3. Minimal soft tissue contusion posteriorly near the vertex. Electronically signed by: Terrell Hurtado M.D. 12/02/2016 3:43 PM Dictated Date/Time: 12/02/2016 3:41 PM
--- NOTE | 2016-12-02 15:53 | DIAGNOSTIC IMAGING REPORT ---
CERVICAL SPINE W/O CLINICAL HISTORY: 89 years-old Male presenting with posterior head injury. TECHNIQUE: Multidetector CT of the cervical spine was performed without the use of intravenous contrast. IV contrast: None. A dose lowering technique was used consistent with the principles of ALARA (as low as reasonably achievable). COMPARISON: None. CT DOSE (mGy.cm): The estimated cumulative dose is 1086.[address] head. FINDINGS: High School Math Teacher topogram: Unremarkable. Normal cervical lordosis. Vertebral body heights essentially maintained. Minimal retrolisthesis of C5 on C6. Intervertebral disc height loss at C5-6 and C6-7. Multilevel degenerative changes noted with disc osteophyte complexes seen to varying degrees at every level. Prominent posterior bony spurring noted at C4-5 through C6-7. This results in mild spinal canal narrowing most severe at C5-6 and C6-7. Facet arthropathy also noted asymmetrically worse on the right. Degenerative changes of the atlantoaxial articulation with prominent pannus formation posteriorly. No acute fracture or subluxation. Prominent cystic change noted at the base of the odontoid process. Degenerative changes further detailed below: C2-3: Uncovertebral hypertrophy and facet arthropathy result in mild left osseous neural foraminal narrowing. C3-4: Uncovertebral hypertrophy and facet arthropathy result in moderate left osseous neural foraminal narrowing. C4-5: Uncovertebral hypertrophy and facet arthropathy result in moderate right osseous neural foraminal narrowing. C5-6: Disc osteophyte complex and uncovertebral hypertrophy result in severe bilateral osseous neural foraminal narrowing. Mild effacement of the ventral thecal sac. C6-7: Disc osteophyte complex and uncovertebral hypertrophy result in moderate bilateral osseous neural foraminal narrowing. Mild effacement of the ventral thecal sac also noted. C7-T1: Normal. Paraspinal soft tissues within normal limits. Atherosclerosis. Mild interlobular septal prominence at the lung apices. Lung apices otherwise clear. IMPRESSION: 1. No acute osseous injury of the cervical spine. 2. Multilevel degenerative changes with varying degrees of osseous neural foraminal and spinal canal narrowing as above. Electronically signed by: Terrell Hurtado M.D. 12/02/2016 3:51 PM Dictated Date/Time: 12/02/2016 3:45 PM
[2016-12-02] MEDS ORDERED: CYCL5TAB PO (15:58)
[2016-12-02] MEDS ORDERED: IBUP-1050 PO (15:58)
[2016-12-02] MEDS ORDERED: TAMS0.4C38 PO (15:58)
[2016-12-02] MEDS ORDERED: PURELAX PO (15:58)
[2016-12-02] MEDS ORDERED: MULT-190 PO (15:58)
[2016-12-02] MEDS ORDERED: ONDANSETRON HOME PACK 4MG OD TAB PO ONE (16:30)
[2016-12-02 16:38] VITALS: BP 157/84; PULSE 66; O2SAT 98
[2016-12-02] MEDS ORDERED: CETI10TA84 PO (19:20)
[2016-12-02] MEDS ORDERED: ATEN50TA8 PO (20:04)
[2016-12-02] MEDS ORDERED: SIMV40TA2 PO (20:04)
[2016-12-02] MEDS ORDERED: CYCL0.052 OP (20:34)
[2016-12-02] MEDS ORDERED: RANI300T PO (20:34)
[2016-12-02] MEDS ORDERED: NXM/40 PO (20:34)
== END 2016-12-02 16:40 | disposition home or self-care (01) ==
LOC: EDBD 14:42 → C.EDB 14:43
DX: S06.0X9A Concussion with loss of consciousness of unspecified duration, initial encounter (principal); R41.3 Other amnesia; S00.03XA Contusion of scalp, initial encounter; R51 Headache; R11.0 Nausea; I10 Essential (primary) hypertension; E78.5 Hyperlipidemia, unspecified; N40.0 Benign prostatic hyperplasia without lower urinary tract symptoms; K21.9 Gastro-esophageal reflux disease without esophagitis; Z79.02 Long term (current) use of antithrombotics/antiplatelets; Z79.899 Other long term (current) drug therapy; Z87.448 Personal history of other diseases of urinary system; Z87.891 Personal history of nicotine dependence; Z82.3 Family history of stroke; Z82.49 Family history of ischemic heart disease and other diseases of the circulatory system; W19.XXXA Unspecified fall, initial encounter; Y93.K1 Activity, walking an animal

== ENCOUNTER → 2016-12-07 | Outpatient (CLI) | payer OTHER ==
[~2016-12-07] MED LIST changes: -ACET-1256 PO; +ATEN50TA8 PO; -CALC500C50 PO; +CETI10TA84 PO; +CYCL0.052 OP; +CYCL5TAB PO; -FLM4 PO; +IBUP-1050 PO; +MULT-190 PO; +NXM/40 PO; +PURELAX PO; +RANI300T PO; +SIMV40TA2 PO; -SNG10 PO; +TAMS0.4C38 PO
--- NOTE | 2016-12-07 12:40 | DIAGNOSTIC IMAGING REPORT ---
L PELVIS/UNILATERAL HIP 2-3VIEWS HISTORY: 89 years-old Male HIP PAIN - POST FALL acute left hip pain status post fall COMPARISON: Pelvis radiograph 12/30/2013 TECHNIQUE: AP view of the pelvis with 2 views of the left hip FINDINGS: Bony pelvis is intact. Bony structures are mildly demineralized. No pelvic ring fracture identified. Advanced intervertebral disc space narrowing, endplate spurring and facet arthropathy of the lower lumbar spine. 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 Moderate left femoral acetabular osteoarthritis. Imaged left femur is intact without acute fracture or dislocation. Vascular calcifications noted. IMPRESSION: 1. No acute fracture or dislocation. 2. Moderate left hip osteoarthritis. 3. Right hip arthroplasty noted without complication. The above report was generated using voice recognition software. It may contain grammatical, syntax or spelling errors. Electronically signed by: Hang Schilling M.D. 12/07/2016 12:39 PM Dictated Date/Time: 12/07/2016 12:36 PM
== END | disposition home or self-care (01) ==
LOC: C.RAD 11:55
PROVIDERS: ATTEND Internal Medicine Critical Care Medicine
DX: M16.12 Unilateral primary osteoarthritis, left hip (principal); Z96.641 Presence of right artificial hip joint; W19.XXXA Unspecified fall, initial encounter

== ENCOUNTER 2017-05-13 12:55 | Emergency (ER) | payer OTHER ==
[~2017-05-13] VITALS: Ht 180.3 cm; Wt 73.2 kg
[~2017-05-13 12:55] MED LIST changes: -CYCL0.052 OP; +CYCL0.052 OPB
[2017-05-13 13:00] VITALS: TEMP 36.9
[2017-05-13] MEDS ORDERED: MoRPHine SULFATE 4 MG/ML 1 ML CARP\\VIAL IV STA (13:26)
[2017-05-13] MEDS ORDERED: ONDANSETRON INJ 2 MG/ML 2 ML VIAL IV STA (13:26)
[2017-05-13 13:36] LABS: BASO % 0.7 %; BASO ABS # 0.04 K/uL (0-0.2); EOS % 2.2 %; EOS ABS # 0.12 K/uL (0-0.5); HEMATOCRIT 44.8 % (42-52); HEMOGLOBIN 15.8 g/dL (14.0-18.0); IG# 0.01 K/uL (0.00-0.02); LYMPH % 16.8 %; LYMPH ABS # 0.93 K/uL (1.2-3.4); MEAN CELL VOLUME 96.3 fL (80-100); MEAN CORPUSCULAR HGB CONC 35.3 g/dl (32-36); MEAN PLATELET VOLUME 11.5 fL (7.4-10.4); MONO % 7.6 %; MONO ABS # 0.42 K/uL (0.11-0.59); NEUT % 72.5 %; PLATELET COUNT 116 K/uL (130-400); RED CELL DISTRIBUTION WIDTH SD 45.1 fL (36.4-46.3); WHITE BLOOD COUNT 5.52 K/uL (4.8-10.8)
[2017-05-13 13:51] LABS: ALBUMIN 3.8 gm/dl (3.4-5.0); CALCIUM 8.6 mg/dl (8.5-10.1); CREATININE 1.24 mg/dl (0.60-1.40); POTASSIUM 3.8 mmol/L (3.5-5.1)
[2017-05-13 13:54] LABS: TOTAL PROTEIN 6.4 gm/dl (6.4-8.2)
[2017-05-13] MEDS ORDERED: CETI10CA PO (14:00)
[2017-05-13] MEDS ORDERED: PSYL58.636 PO (14:00)
[2017-05-13] MEDS ORDERED: NAPR1TAB9 PO (14:00)
[2017-05-13] MEDS ORDERED: PRLSR20 PO (14:00)
--- NOTE | 2017-05-13 14:09 | DIAGNOSTIC IMAGING REPORT ---
PELVIS 1 OR 2 VIEW ROUTINE CLINICAL HISTORY: pelvic pain pain COMPARISON: 12/07/2016 DISCUSSION: Total right hip prosthetic is in position. Oblique fracture at the lateral aspect of the femoral prosthetic displacing the lateral aspect of the proximal femur there is involvement of the greater trochanter. Medial aspect of the femur appears intact. Maximum displacement is 1.7 cm at the level of the inferior femoral prosthetic. Additional transverse fractures are identified at the mid and superior aspect lateral femoral shaft. No evidence for acetabular protrusion. IMPRESSION: Oblique fracture proximal femoral shaft with lateral displacement of the lateral femur up to 1.7 cm. The Fractures is comminuted. The above report was generated using voice recognition software. It may contain grammatical, syntax or spelling errors. Electronically signed by: Gurpreet Tello M.D. 05/13/2017 2:07 PM Dictated Date/Time: 05/13/2017 2:04 PM
--- NOTE | 2017-05-13 14:09 | DIAGNOSTIC IMAGING REPORT ---
R FEMUR 2 VIEWS ROUTINE CLINICAL HISTORY: r femur pain COMPARISON: None. DISCUSSION: Fracture of the proximal femoral shaft. This involves the femoral shaft lateral to the patient's total right hip prosthetic. A prosthetic appears to remain aligned appropriately. Manual the femur is intact. No evidence for acetabular protrusion. There is no evidence for soft tissue swelling. IMPRESSION: Oblique fracture proximal femoral shaft with lateral displacement and comminution of the lateral margin of the femur. The above report was generated using voice recognition software. It may contain grammatical, syntax or spelling errors. Electronically signed by: Gurpreet Tello M.D. 05/13/2017 2:08 PM Dictated Date/Time: 05/13/2017 2:07 PM
--- NOTE | 2017-05-13 14:10 | DIAGNOSTIC IMAGING REPORT ---
CHEST ONE VIEW PORTABLE CLINICAL HISTORY: falll trauma COMPARISON STUDY: 08/10/2016 FINDINGS: Mild stable cardiomegaly. Diaphragms are smooth. Lungs are clear. IMPRESSION: No acute process. Mild stable cardiomegaly. The above report was generated using voice recognition software. It may contain grammatical, syntax or spelling errors. Electronically signed by: Gurpreet Tello M.D. 05/13/2017 2:09 PM Dictated Date/Time: 05/13/2017 2:08 PM
[2017-05-13 14:35] VITALS: O2SAT 98; Ht 180.3 cm; Wt 73.2 kg
[2017-05-13] MEDS ORDERED: ACETAMINOPHEN 325 MG TAB PO PRN (15:00)
[2017-05-13] MEDS ORDERED: HYDROmorphone INJ 0.5 MG/0.5 ML SYR IV PRN (15:00)
[2017-05-13] MEDS ORDERED: SOD PHOSPHATE/SOD BIPHOSPHATE ENEMA 132 ML BTL PR PRN (15:00)
[2017-05-13] MEDS ORDERED: ONDANSETRON INJ 2 MG/ML 2 ML VIAL IV PRN (15:00)
[2017-05-13] MEDS ORDERED: MAGNESIUM HYDROXIDE SUSP 30 ML UDC PO PRN ×2 (15:00)
[2017-05-13] MEDS ORDERED: ZOLPIDEM TARTRATE 5 MG TAB PO PRN ×2 (15:00)
[2017-05-13] MEDS ORDERED: HEPARIN SOD 5000 UNIT/0.5 ML CARP SQ SCH (15:00)
[2017-05-13] MEDS ORDERED: MoRPHine SULFATE 2 MG/ML CARP IV PRN (15:00)
[2017-05-13] MEDS ORDERED: OXYCODONE HCL IR 5 MG TAB (IMMEDIATE RELEASE) PO PRN (15:00)
[2017-05-13] MEDS ORDERED: POLYETHYLENE (MIRALAX) 17 GM PACK PO PRN ×2 (15:00→16:00)
[2017-05-13] MEDS ORDERED: NALOXONE HCL 0.4 MG/1 ML VIAL/CARP IV PRN (15:00)
[2017-05-13] MEDS ORDERED: ALUMINUM/MAGNESIUM/SIMETH (MAALOX MAX) 30 ML UDC PO PRN (15:00)
[2017-05-13] MEDS ORDERED: BISACODYL 10 MG SUPP PR PRN (15:00)
[2017-05-13] MEDS ORDERED: NSS PEDIATRIC BOLUS IV STA (15:05)
[2017-05-13] MEDS ORDERED: PANTOprazole INJ 40 MG in SYRINGE 0 ML IV SCH (15:15)
[2017-05-13] MEDS ORDERED: HYDROmorphone INJ 0.5 MG/0.5 ML SYR ONE (15:19)
--- NOTE | 2017-05-13 15:51 | DIAGNOSTIC IMAGING REPORT ---
HEAD WITHOUT CONTRAST (CT) CT DOSE: 1199.40 mGy.cm HISTORY: Trauma fall TECHNIQUE: Multiaxial CT images of the head were performed without the use of intravenous contrast. A dose lowering technique was utilized adhering to the principles of ALARA. Comparison: 12/02/2016 Findings: The paranasal sinuses and mastoid air cells are clear. The calvarium and skull base are intact. The ventricles and sulci are within normal limits. There is no mass, hematoma, midline shift, or acute infarct. Age-related chronic small vessel change. Mild age-related atrophy. Impression: No acute intracranial abnormality. Age-related change. The above report was generated using voice recognition software. It may contain grammatical, syntax or spelling errors. Electronically signed by: Gurpreet Tello M.D. 05/13/2017 3:50 PM Dictated Date/Time: 05/13/2017 3:49 PM
--- NOTE | 2017-05-13 15:54 | DIAGNOSTIC IMAGING REPORT ---
CERVICAL SPINE W/O CT DOSE: HISTORY: Trauma fall TECHNIQUE: Multiaxial CT images of the cervical spine were performed and reformatted in the sagittal and coronal plane without the use of contrast. A dose lowering technique was utilized adhering to the principles of ALARA. COMPARISON: None. FINDINGS: No fractures. No subluxation. Prevertebral soft tissues and the C1-C2 interval are intact. No pneumothorax. Considerable degenerative change throughout. This is most prominent from C5 through C7. IMPRESSION: No fractures within the cervical spine. Considerable degenerative change. The above report was generated using voice recognition software. It may contain grammatical, syntax or spelling errors. Electronically signed by: Gurpreet Tello M.D. 05/13/2017 3:53 PM Dictated Date/Time: 05/13/2017 3:52 PM
[2017-05-13] MEDS ORDERED: SODIUM CHLORIDE 0.9% 500ML 500 ML IV SCH (16:00)
--- NOTE | 2017-05-13 16:22 | EMERGENCY ROOM VISIT NOTE ---
History Report prepared by Aiibhawa: Aracely Gill Under the Supervision of: Dr. Chetan Ortiz D.O. First contact with patient: 13:01 Stated Complaint: FALL History of Present Illness The patient is an 89 year old male who presents to the Emergency Room with complaints of a fall that occurred prior to arrival. He was brought to the ED via EMS. He reports he was lifting his 's wheelchair out of his car when as he turned, his left leg started "vibrating" and he fell onto his right hip, which was previously surgically repaired. He states he has had problems with leg weakness in the past. He did not hit his head during the fall or lose consciousness. He rates his right hip pain as a 6.5/10 in severity. Pain is sharp stabbing in nature. Patient was brought in by EMS. Narcotics which were given did help out. The patient admits to feeling minimally light headed before the fall. The patient can still feel normal sensation in both legs. Pt denies headache, neck pain, change in vision, fevers, chest pain, shortness of breath, nausea, vomiting, diarrhea, pain with urination, and melena. Source of History: patient, family (son) Onset: PRODUCT SUPPORT TECHNICIAN Position: other (global) Timing: resolved Associated Symptoms: + weakness (of the left leg), No LOC, No fevers, No headache, No chest pain, No SOB, No nausea, No vomiting, No melena, No diarrhea , No urinary symptoms Review of Systems See HPI for pertinent positives & negatives. A total of 10 systems reviewed and were otherwise negative. Past Medical & Surgical Medical Problems: (1) Benign hypertension (2) BPH (benign prostatic hyperplasia) (3) Cholecystectomy (4) Esophageal Reflux (5) Facial droop (6) Gastroesophageal reflux disease (7) Hip fracture (8) History of airway aspiration (9) Hyperlipidemia (10) Hyperlipidemia Nec/Nos (11) Hypertension Nos (12) Overactive bladder (13) Skin problems (14) Spinal stenosis (15) transurethral transection (16) Weakness Family History Hypertension Stroke or transient ischemic attack in son Social History Smoking Status: Former Smoker Alcohol Use: occasionally Drug Use: none Marital Status: Housing Status: lives with family Occupation Status: retired Current/Historical Medications Scheduled Atenolol (Tenormin), 50 MG PO DAILY Bimatoprost (Lumigan), 1 DROP OPB QPM Cetirizine (Zyrtec), 10 MG PO QPM Clopidogrel (Plavix), 75 MG PO DAILY Cyclosporine (Ophth) (Restasis), 1 DROP OPB BID Gabapentin (Gabapentin), 200 MG PO BID Losartan Potassium (Cozaar), 50 MG PO DAILY Methylcellulose (Laxative) (Citrucel), 500 MG PO DAILY Mirabegron (Myrbetriq Er), 50 MG PO DAILY Ocuvite Preservision (Ocuvite Preservision), 1 TAB PO BID Omeprazole (Prilosec), 20 MG PO BID Psyllium (Metamucil Fiber), 1 PKT PO QAM Ranitidine Hcl (Zantac), 300 MG PO HS Simvastatin (Zocor), 40 MG PO QPM Tamsulosin Hcl (Flomax), 0.4 MG PO QPM [Purelax], 1 PKT PO QAM Scheduled PRN Ibuprofen (Advil), 200 MG PO QAM PRN for Headache or Pain Naproxen (Aleve), 220 MG PO UD PRN for BACK PAIN Allergies Coded Allergies: Azithromycin (Verified Allergy, Unknown, PER H&P 05/20/11, 05/13/17) Erythromycin (Verified Allergy, Unknown, unknown, 05/13/17) Indomethacin (Verified Allergy, Unknown, PER ADMISSION ORDERS 05/20/11, TAKES NAPROXEN OTC, 05/13/17) Metformin (Verified Allergy, Unknown, PER H&P 05/20/11, 05/13/17) Penicillins (Verified Allergy, Unknown, UNKNOWN, 05/13/17) Rosiglitazone (Verified Allergy, Unknown, PER H&P 05/20/11, 05/13/17) Physical Exam Vital Signs Date Time Temp Pulse Resp B/P (MAP) Pulse Ox O2 Delivery O2 Flow Rate FiO2 05/13/17 16:58 83 16 143/95 100 Room Air 05/13/17 16:30 65 16 124/73 97 Room Air 05/13/17 15:25 67 16 136/69 98 Room Air 05/13/17 14:35 98 Room Air 05/13/17 13:30 66 16 147/75 98 Room Air 05/13/17 13:00 36.9 70 14 144/78 95 Room Air Physical Exam GENERAL: Patient is alert, laying in bed, in moderate distress, holding right proximal femur. HEAD: normal cephalic, atraumatic EYE EXAM: normal conjunctiva, PERRL and EOM's grossly intact OROPHARYNX: no exudate, no erythema, lips, buccal mucosa, and tongue normal and mucous membranes are moist EARS: TMs clear b/l NECK: supple, no nuchal rigidity, no adenopathy, non-tender CHEST: stable to compression anteriorly and posteriorly LUNGS: clear to auscultation. Normal chest wall mechanics HEART: no murmurs, S1 normal and S2 normal ABDOMEN: abdomen soft, non-tender, normo-active bowel sounds, no masses, no rebound or guarding. PELVIS: stable to compression anteriorly and posteriorly BACK: Back is symmetrical on inspection and there is no deformity, no midline tenderness, no CVA tenderness. UPPER EXTREMITIES: full active and passive range of motion of all joints without tenderness to palpation LOWER EXTREMITIES: Acute reproducible tenderness over right proximal femur. No tenderness with ROM of right ankle. Full active and passive range of motion of all left sided joints without tenderness to palpation. R Dp pulse 2/4 NEURO EXAM: Normal sensorium, cranial nerves II-XII grossly intact, normal speech, no gross weakness of arms GCS: 15. Medical Decision & Procedures ER Provider Diagnostic Interpretation: Radiology results as stated below per my review and the radiologist's interpretation: CERVICAL SPINE W/O CT DOSE: HISTORY: Trauma fall TECHNIQUE: Multiaxial CT images of the cervical spine were performed and reformatted in the sagittal and coronal plane without the use of contrast. A dose lowering technique was utilized adhering to the principles of ALARA. COMPARISON: None. FINDINGS: No fractures. No subluxation. Prevertebral soft tissues and the C1-C2 interval are intact. No pneumothorax. Considerable degenerative change throughout. This is most prominent from C5 through C7. IMPRESSION: No fractures within the cervical spine. Considerable degenerative change. The above report was generated using voice recognition software. It may contain grammatical, syntax or spelling errors. Electronically signed by: Gurpreet Tello M.D. 05/13/2017 3:53 PM HEAD WITHOUT CONTRAST (CT) CT DOSE: 1199.40 mGy.cm HISTORY: Trauma fall TECHNIQUE: Multiaxial CT images of the head were performed without the use of intravenous contrast. A dose lowering technique was utilized adhering to the principles of ALARA. Comparison: 12/02/2016 Findings: The paranasal sinuses and mastoid air cells are clear. The calvarium and skull base are intact. The ventricles and sulci are within normal limits. There is no mass, hematoma, midline shift, or acute infarct. Age-related chronic small vessel change. Mild age-related atrophy. Impression: No acute intracranial abnormality. Age-related change. The above report was generated using voice recognition software. It may contain grammatical, syntax or spelling errors. Electronically signed by: Gurpreet Tello M.D. 05/13/2017 3:50 PM CHEST ONE VIEW PORTABLE CLINICAL HISTORY: falll trauma COMPARISON STUDY: 08/10/2016 FINDINGS: Mild stable cardiomegaly. Diaphragms are smooth. Lungs are clear. IMPRESSION: No acute process. Mild stable cardiomegaly. The above report was generated using voice recognition software. It may contain grammatical, syntax or spelling errors. Electronically signed by: Gurpreet Tello M.D. 05/13/2017 2:09 PM R FEMUR 2 VIEWS ROUTINE CLINICAL HISTORY: r femur pain COMPARISON: None. DISCUSSION: Fracture of the proximal femoral shaft. This involves the femoral shaft lateral to the patient's total right hip prosthetic. A prosthetic appears to remain aligned appropriately. Manual the femur is intact. No evidence for acetabular protrusion. There is no evidence for soft tissue swelling. IMPRESSION: Oblique fracture proximal femoral shaft with lateral displacement and comminution of the lateral margin of the femur. The above report was generated using voice recognition software. It may contain grammatical, syntax or spelling errors. Electronically signed by: Gurpreet Tello M.D. 05/13/2017 2:08 PM PELVIS 1 OR 2 VIEW ROUTINE CLINICAL HISTORY: pelvic pain pain COMPARISON: 12/07/2016 DISCUSSION: Total right hip prosthetic is in position. Oblique fracture at the lateral aspect of the femoral prosthetic displacing the lateral aspect of the proximal femur there is involvement of the greater trochanter. Medial aspect of the femur appears intact. Maximum displacement is 1.7 cm at the level of the inferior femoral prosthetic. Additional transverse fractures are identified at the mid and superior aspect lateral femoral shaft. No evidence for acetabular protrusion. IMPRESSION: Oblique fracture proximal femoral shaft with lateral displacement of the lateral femur up to 1.7 cm. The Fractures is comminuted. The above report was generated using voice recognition software. It may contain grammatical, syntax or spelling errors. Electronically signed by: Gurpreet Tello M.D. 05/13/2017 2:07 PM Laboratory Results 05/13/17 13:25 Red Blood Count 4.65, Mean Corpuscular Volume 96.3, Mean Corpuscular Hemoglobin 34.0, Mean Corpuscular Hemoglobin Concent 35.3, Mean Platelet Volume 11.5, Neutrophils (%) (Auto) 72.5, Lymphocytes (%) (Auto) 16.8, Monocytes (%) (Auto) 7.6, Eosinophils (%) (Auto) 2.2, Basophils (%) (Auto) 0.7, Neutrophils # (Auto) 4.00, Lymphocytes # (Auto) 0.93, Monocytes # (Auto) 0.42, Eosinophils # (Auto) 0.12, Basophils # (Auto) 0.04 05/13/17 13:25 Test 05/13/17 13:25 05/13/17 14:20 White Blood Count 5.52 K/uL (4.8-10.8) Red Blood Count 4.65 M/uL (4.7-6.1) Hemoglobin 15.8 g/dL (14.0-18.0) Hematocrit 44.8 % (42-52) Mean Corpuscular Volume 96.3 fL (80-100) Mean Corpuscular Hemoglobin 34.0 pg (25-34) Mean Corpuscular Hemoglobin Concent 35.3 g/dl (32-36) Platelet Count 116 K/uL (130-400) Mean Platelet Volume 11.5 fL (7.4-10.4) Neutrophils (%) (Auto) 72.5 % Lymphocytes (%) (Auto) 16.8 % Monocytes (%) (Auto) 7.6 % Eosinophils (%) (Auto) 2.2 % Basophils (%) (Auto) 0.7 % Neutrophils # (Auto) 4.00 K/uL (1.4-6.5) Lymphocytes # (Auto) 0.93 K/uL (1.2-3.4) Monocytes # (Auto) 0.42 K/uL (0.11-0.59) Eosinophils # (Auto) 0.12 K/uL (0-0.5) Basophils # (Auto) 0.04 K/uL (0-0.2) RDW Standard Deviation 45.1 fL (36.4-46.3) RDW Coefficient of Variation 13.0 % (11.5-14.5) Immature Granulocyte % (Auto) 0.2 % Immature Granulocyte # (Auto) 0.01 K/uL (0.00-0.02) Anion Gap 5.0 mmol/L (3-11) Est Creatinine Clear Calc Drug Dose 41.8 ml/min Estimated GFR () 59.4 Estimated GFR (Non- 51.2 BUN/Creatinine Ratio 21.7 (10-20) Calcium Level 8.6 mg/dl (8.5-10.1) Total Bilirubin 0.8 mg/dl (0.2-1) Direct Bilirubin 0.2 mg/dl (0-0.2) Aspartate Amino Transf (AST/SGOT) 16 U/L (15-37) Alanine Aminotransferase (ALT/SGPT) 20 U/L (12-78) Alkaline Phosphatase 101 U/L (45-117) Total Protein 6.4 gm/dl (6.4-8.2) Albumin 3.8 gm/dl (3.4-5.0) Lipase 82 U/L (73-393) Urine Color YELLOW Urine Appearance CLEAR (CLEAR) Urine pH 7.0 (4.5-7.5) Urine Specific [place] 1.022 (1.000-1.030) Urine Protein NEG (NEG) Urine Glucose (UA) NEG (NEG) Urine Ketones NEG (NEG) Urine Occult Blood NEG (NEG) Urine Nitrite NEG (NEG) Urine Bilirubin NEG (NEG) Urine Urobilinogen NEG (NEG) Urine Leukocyte Esterase NEG (NEG) Urine WBC (Auto) 1-5 /hpf (0-5) Urine RBC (Auto) 0-4 /hpf (0-4) Urine Hyaline Casts (Auto) 1-5 /lpf (0-5) Urine Epithelial Cells (Auto) 10-20 /lpf (0-5) Urine Bacteria (Auto) NEG (NEG) Laboratory results per my review. Medications Administered Medications (Trade) Dose Ordered Sig/Daya Route Start Time Stop Time Status Last Admin Dose Admin Morphine Sulfate (MoRPHine SULFATE INJ) 4 mg NOW STAT IV 05/13/17 13:26 05/13/17 13:27 DC 05/13/17 13:26 4 MG Ondansetron HCl (Zofran Inj) 4 mg NOW STAT IV 05/13/17 13:26 05/13/17 13:27 DC 05/13/17 13:33 4 MG Pantoprazole Sodium 40 mg/ Syringe 10 ml @ 5 mls/min TODAY@1515 IV 05/13/17 15:15 05/13/17 23:59 05/13/17 16:04 5 MLS/MIN Hydromorphone HCl (Dilaudid Inj) 0.5 mg STK-MED ONCE .ROUTE 05/13/17 15:19 05/13/17 15:20 DC 05/13/17 15:24 0.5 MG Sodium Chloride 500 ml @ 500 mls/hr TODAY@1600 IV 05/13/17 16:00 05/13/17 16:59 DC 05/13/17 16:04 500 MLS/HR ED Course ED COURSE: Vital signs were reviewed and showed normal vital signs. The patients medical record was reviewed The above diagnostic studies were performed and reviewed. ED treatments and interventions as stated above. 1301: The patient was evaluated in room B3. A complete history and physical examination was performed. 1326: Zofran 4 mg IV, Morphine Sulfate 4 mg IV. 1415: I reevaluated the patient. He is still in pain. I discussed my recommendation he be further evaluated by an acute care facility and he states he would like to be treated at [facility]. 1421: I discussed the patients case with Dr. Rodríguez, [facility]. He recommends the patient be further evaluated by the hospital medicine team. 1428: I discussed the patients case with Dr. Loo, [facility] Hospitalist. The patient will be further evaluated. 1439: I discussed the patients case with Dr. Rodríguez again. He recommends the patient be transferred to an acute care facility due to a possible margarito- prosthetic femur fracture. 1445: I asked the patient where he would prefer to be transferred, and he states [facility] in [place]. 1511: I discussed the patients case with Dr. Mohamud, [facility]. He would like to talk with Dr. Rodríguez. 1542: I spoke with Dr. Rodríguez and he states he will contact [facility]. 1550: Upon reevaluation, the patient is resting comfortably. I discussed my findings with the patient and he understands and agrees with the treatment plan. 1555: I discussed the patients case with Dr. Henry, [facility]. The patient will be further evaluated and I will contact their hospital medicine team. 1600: I discussed the patients case with Dr. Jones, [facility]. The patient has been accepted as a transfer to [place]. 1606: Upon further evaluation, the patient has signed papers agreeing to transfer. He will be further evaluated. Based on the patients age, coexisting illnesses, exam and lab findings the decision to treat as an inpatient was made. The patient remained stable while under my care. The patient will be evaluated for further management. Medical Decision Differential diagnoses include major intracranial, cervical, spinal, thoracic, abdominal, pelvic and neurologic injury. Fracture, contusion, sprain, strain, laceration, abrasions included as well. Patient is an 89-year-old male who presents to ER following a mechanical fall complaining of right lower extremity pain. He was brought in by EMS. He has no other complaints. Did not hit his head. CBC along with BMP, LFTs, bilirubin lipase is unremarkable. UA was negative. X-rays show a right periprosthetic femur fracture. I discussed the case with our orthopedic surgeon who agreed initially with admitting the patient to internal medicine. I discussed case with internal medicine. Patient was evaluated by internal medicine. Then I obtained a call from orthopedics who recommended transferring due to the complexity of the case. I then discussed case with [facility] orthopedic surgery. They declined to accept the transfer and noted that we can handle this at our facility. I then consulted with Dr. Rodríguez again and recommended that he consult with [facility] orthopedics as that is where the patient wants to go. They apparently again refused transfer. Dr. Rodríguez did obtain transfer to [facility]. He did update the patient in regards to this. I discussed with the [place] internal medicine doctor. Patient was accepted to [place]. Patient was given 2 doses of IV narcotics while in the ER. He was slightly groggy. CT head and neck were negative. Patient has paperwork which notes he is a DNR and DNI. I discussed this with patient and son at bedside. He will be a full code for the time being. I did discuss this with patient on 2 separate occasions. Patient was transferred to [facility] via ALS. Medication Reconcilliation Current Medication List: was personally reviewed by me Blood Pressure Screening Patient's blood pressure: Elevated blood pressure Blood pressure disposition: Elevated BP felt to be situational Consults Time Called: 1415 Consulting Physician: Dr. Rodríguez [facility] Returned Call: 1421 I discussed the patients case with Dr. Rodríguez, [facility]. He recommends the patient be further evaluated by the hospital medicine team. Additional Consults: Time Called: 1425 Consulted Physician: Dr. Loo [facility] Hospitalist Returned Call: 1428 Additional Comments: I discussed the patients case with Dr. Loo [facility] Hospitalist. The patient will be further evaluated. Time Called: 1505 Consulted Physician: [facility] Returned Call: 1511 Additional Comments: I discussed the patients case with [facility]. He would like to talk with Dr. Rodríguez. Impression Primary Impression: Femur fracture, right Scribe Attestation The scribe's documentation has been prepared under my direction and personally reviewed by me in its entirety. I confirm that the note above accurately reflects all work, treatment, procedures, and medical decision making performed by me. Departure Information Dispostion Transfer Acute Care Facility ( ) Referrals Terrell Briseno M.D. (PCP) Problem Qualifiers Primary Impression: Femur fracture, right Encounter type: initial encounter Femur location: unspecified portion of femur Fracture type: closed Fracture morphology: other fracture Qualified Codes: S72.8X1A - Other fracture of right femur, initial encounter for closed fracture
[2017-05-13 16:58] VITALS: BP 143/95; PULSE 83; O2SAT 100
--- NOTE | 2017-05-13 17:08 | ORTHOPEDIC CONSULTATION REPORT ---
DATE OF CONSULTATION: 05/13/2017 CHIEF COMPLAINT: Right hip pain. HISTORY OF PRESENT ILLNESS: The patient is an 89-year-old male who slipped and fell while opening some bags around his house from a standing height and sustained a periprosthetic femur fracture of his right lower extremity. He states that the implants have been in somewhere around 5 years. He is 89 years old. He has no major complaints of headache, etc. He is here with his son. He denies any nausea, vomiting, chest pain, shortness of breath, fever or chills. Vital signs are stable. He is afebrile. REVIEW OF SYSTEMS: As noted above. PAST MEDICAL HISTORY: Remarkable for benign hypertension, BPH, cholecystectomy, gastroesophageal reflux disease, airway aspiration history, questionable facial droop, hyperlipidemia, hypertension, overactive bladder, spinal stenosis, transurethral transection. FAMILY HISTORY: Remarkable for stroke and transient ischemic attack. SOCIAL HISTORY: Remarkable for former smoker. Social alcohol. He is . His is wheelchair-bound. He is retired. PREADMISSION MEDICATIONS: Include atenolol, Lumigan, Plavix, cyclosporine, Nexium, gabapentin, Levaquin in the past, nothing current. Cozaar, Citrucel, Myrbetriq ER, Zantac, Zocor, and tamsulosin. P.r.n. use of montelukast, Naprosyn and Zyrtec. ALLERGIES: HE IS ALLERGIC TO AZITHROMYCIN, ERYTHROMYCIN, INDOMETHACIN, METFORMIN, PENICILLIN, AND ROSIGLITAZONE. PHYSICAL EXAMINATION: Pertinent physical exam today reveals skin is closed. Neurovascular check, femoral sciatic nerve is normal. Knee, hip, and ankle exam are without any gross findings. He is tender along the right thigh. His pulses are intact. X-rays reveal periprosthetic femur fracture with lateral proximal fracture which is comminuted and involves the entire abductor mechanism. The cement mantle there is loose. The implant is still relatively engaged and is fixed distally. The bipolar implant in the acetabulum looks like there is wear medially. ASSESSMENT: Complex fracture pattern in 89-year-old male who has [place] B type injury which will likely require complete implant exchange with cement extraction and potential conversion from bipolar to total hip replacement. Due to the complex nature of this case and the chronicity of the implant, plan is to transfer to [facility]. This was discussed directly with Dr. Hira Henry, who is willing to accept the patient in transfer. This was discussed in detail as well with patient and his son. They are willing to accept the transfer. I have also advised that postoperative care can be easily done here so that they do not have to travel so frequently once the operating team at [facility] is so willing to allow care transfer to us here in [place]. This was discussed in detail also with Dr. Ortiz. He was also involved with the transfer call. Follow up with me postoperatively once procedure is completed. GEN
--- NOTE | 2017-05-13 19:00 | Progress Note ---
Progress Note Date of Service May 13, 2017. Progress Note I was initially called by the ER physician to admit the patient. Appears to be a mechanical fall. But on my exam patient appears to be dehydrated. I allowed the patient to take ice chips I started him on gentle IV fluid hydration I ordered some medication for pain management I was then called by ER physician and informed that the patient will be transferred to [place] due to the complexity of his case. I will not charge the patient for this encounter
[2017-05-13] MEDS ORDERED: CETIRIZINE HCL 10 MG TAB PO SCH (21:00)
[2017-05-13] MEDS ORDERED: NON-FORMULARY MEDICATION (Ranitidine Hcl (Zantac) 300 MG) PO SCH (21:00)
[2017-05-13] MEDS ORDERED: NON-FORMULARY MEDICATION (Cyclosporine (Ophth) (Restasis) 1 DROP) OPB SCH (21:00)
[2017-05-13] MEDS ORDERED: NON-FORMULARY MEDICATION (Omeprazole (Prilosec) 20 MG) PO SCH (21:00)
[2017-05-13] MEDS ORDERED: GABAPENTIN 100 MG CAP PO SCH (21:00)
[2017-05-13] MEDS ORDERED: DOCUSATE SODIUM/SENNA 50/8.6MG TAB PO SCH (21:00)
[2017-05-13] MEDS ORDERED: SIMVASTATIN 40 MG TAB PO SCH (21:00)
[2017-05-13] MEDS ORDERED: CEROVITE ADV FORMULA TAB PO SCH (21:00)
[2017-05-13] MEDS ORDERED: TAMSULOSIN HCL 0.4 MG CAP PO SCH (21:00)
[2017-05-13] MEDS ORDERED: BIMATOPROST OPB SCH (21:00)
[2017-05-14] MEDS ORDERED: PURELAX PO SCH (09:00)
[2017-05-14] MEDS ORDERED: PSYLLIUM PO SCH (09:00)
[2017-05-14] MEDS ORDERED: METHYLCELLULOSE 500 MG PO SCH (09:00)
[2017-05-14] MEDS ORDERED: MIRABEGRON ER 25 MG TAB PO SCH (09:00)
== END 2017-05-13 17:00 | disposition short-term general hospital (02) ==
LOC: EDBD 12:55 → C.EDB 12:57 → EDBEDREQSVC 15:41 → C.EDB 17:00 → CANBEDREQ 17:17
DX: M97.01XA Periprosthetic fracture around internal prosthetic right hip joint, initial encounter (principal); Y83.1 Surgical operation with implant of artificial internal device as the cause of abnormal reaction of the patient, or of later complication, without mention of misadventure at the time of the procedure; W19.XXXA Unspecified fall, initial encounter; Z96.641 Presence of right artificial hip joint; Z66 Do not resuscitate; E86.0 Dehydration; I10 Essential (primary) hypertension; N40.0 Benign prostatic hyperplasia without lower urinary tract symptoms; Z90.49 Acquired absence of other specified parts of digestive tract; K21.9 Gastro-esophageal reflux disease without esophagitis; E78.5 Hyperlipidemia, unspecified; Z82.49 Family history of ischemic heart disease and other diseases of the circulatory system; Z82.3 Family history of stroke; Z79.02 Long term (current) use of antithrombotics/antiplatelets; Z79.899 Other long term (current) drug therapy; Z88.0 Allergy status to penicillin; Z88.1 Allergy status to other antibiotic agents; Z88.8 Allergy status to other drugs, medicaments and biological substances; Z87.891 Personal history of nicotine dependence

== ENCOUNTER → 2017-05-25 | Outpatient (CLI) | payer OTHER ==
[~2017-05-25] MED LIST changes: -CYCL5TAB PO; -NXM/40 PO; +PRLSR20 PO; +PSYL58.636 PO
--- NOTE | 2017-05-25 15:30 | DIAGNOSTIC IMAGING REPORT ---
ULTRASOUND RIGHT LOWER EXTREMITY ARTERIAL; ANKLE-BRACHIAL INDICES CLINICAL HISTORY: Color and temperature changes of the right lower extremity. COMPARISON STUDY: No priors. TECHNIQUE: Real-time, grayscale, and color Doppler sonography of the arteries of the right lower extremity was performed from the inguinal crease to the foot. Ankle-brachial indices were assessed in the right lower extremity. The patient declined assessment of the left lower extremity arteries. FINDINGS: Ankle-brachial indices: Right brachial pressure measures 127. Pressures in the right posterior tibial artery measure 131 for an SONIA of 1.03, and pressures in the right dorsalis pedis artery measure 79 for an SONIA of 0.62. Right lower extremity: Mild atherosclerotic plaque is identified throughout the arteries of the right lower extremity. There are triphasic arterial waveforms identified in the right common femoral artery with velocities measuring up to 82 cm/s. The profunda femoris artery is patent. There are biphasic arterial waveforms seen throughout the right superficial femoral artery. Velocities throughout the superficial femoral artery measure up to 85 cm/s. There are biphasic arterial waveforms in the popliteal artery with velocities measuring up to 41 cm/s. There is three-vessel runoff to the foot. Blunted arterial waveforms are seen in the right posterior tibial artery. Velocities in the posterior tibial artery measure up to 69 cm/s, velocities within the peroneal artery measure up to 34 cm/s, and velocities within the anterior tibial artery measure up to 27 cm/s. There is reversal of flow suggested in the dorsalis pedis artery with velocities measuring up to 18 cm/s. Blunted arterial waveforms are seen in the dorsalis pedis artery. IMPRESSION: 1. There is evidence of peripheral vascular disease with no sonographic evidence of high-grade stenosis or focal vessel cut-off seen throughout the arteries of the right lower extremity. 2. The patient declined assessment of the left lower extremity. 3. Ankle-brachial indices in the right leg as above. Dictated: 05/25/2017 3:11 PM Transcribed: 05/25/2017 3:29 PM [email or web address] Electronically signed by: Sarthak Zhao M.D. 05/25/2017 3:52 PM Dictated Date/Time: 05/25/2017 3:11 PM
== END | disposition home or self-care (01) ==
LOC: C.ULTR 13:14
PROVIDERS: ATTEND Internal Medicine
DX: I73.9 Peripheral vascular disease, unspecified (principal)

== ENCOUNTER 2017-06-11 21:29 | Emergency (ER) | payer OTHER ==
[~2017-06-11] VITALS: Ht 177.8 cm; Wt 71.4 kg
[2017-06-11 21:42] VITALS: TEMP 36.7; Ht 177.8 cm; Wt 71.4 kg
[2017-06-11] MEDS ORDERED: LIDOCAINE HCL 2% VISC SOLN 20 ML UDC PO STA (21:59)
[2017-06-11] MEDS ORDERED: ALUMINUM/MAGNESIUM SUSP 30 ML UDC PO STA ×2 (21:59→22:55)
--- NOTE | 2017-06-11 22:15 | DIAGNOSTIC IMAGING REPORT ---
R HIP UNILATERAL 2 VIEWS CLINICAL HISTORY: fall trauma. Pain. COMPARISON: 05/13/2017 DISCUSSION: Total right hip prosthetic in good position. A lateral plate is present. Linear fracture lines oriented vertically and horizontally were present on the prior study. It is not appear to be evidence for a new or interval finding. Alignment is anatomic. IMPRESSION: Anatomic alignment posttotal right hip arthroplasty and femoral shaft retaining plate. No evidence for a new or interval fracture compared to the prior exam. The above report was generated using voice recognition software. It may contain grammatical, syntax or spelling errors. Electronically signed by: Gurpreet Tello M.D. 06/11/2017 10:14 PM Dictated Date/Time: 06/11/2017 10:12 PM
--- NOTE | 2017-06-11 22:59 | EMERGENCY ROOM VISIT NOTE ---
History Report prepared by Abram: Roman Lora Under the Supervision of: Dr. Martin Smith D.O. First contact with patient: 21:46 Chief Complaint: FALL Stated Complaint: FALL History of Present Illness The patient is a 89 year old male who presents to the Emergency Room following a mechanical fall that occurred immediately prior to arrival. The patient states that he was making his way around his room at "[facility]" when he fell to the ground. He fell onto his right elbow/right side and denies hitting his head or losing consciousness. The patient and his sons at bedside note that he fell 1 month ago and fractured the right hip. The patient was transferred to [place] to repair the hip and he was then placed in [facility]. He was just discharged from [facility] 6 days ago. He is no currently experiencing any acute pain. Source of History: patient, family Onset: Shortly FRIEND OF THE COURT Position: elbow (right) Quality: other (Falling episode) Timing: other (Single falling episode) Associated Symptoms: No LOC, No headache Review of Systems See HPI for pertinent positives & negatives. A total of 10 systems reviewed and were otherwise negative. Past Medical & Surgical Medical Problems: (1) Benign hypertension (2) BPH (benign prostatic hyperplasia) (3) Cholecystectomy (4) Esophageal Reflux (5) Facial droop (6) Gastroesophageal reflux disease (7) Hip fracture (8) History of airway aspiration (9) Hyperlipidemia (10) Hyperlipidemia Nec/Nos (11) Hypertension Nos (12) Overactive bladder (13) Skin problems (14) Spinal stenosis (15) transurethral transection (16) Weakness Family History Hypertension Stroke or transient ischemic attack in son Social History Smoking Status: Former Smoker Alcohol Use: occasionally Drug Use: none Marital Status: Housing Status: lives with family Occupation Status: retired Current/Historical Medications Scheduled Atenolol (Tenormin), 50 MG PO DAILY Bimatoprost (Lumigan), 1 DROP OPB QPM Cetirizine (Zyrtec), 10 MG PO QPM Clopidogrel (Plavix), 75 MG PO DAILY Cyclosporine (Ophth) (Restasis), 1 DROP OPB BID Gabapentin (Gabapentin), 200 MG PO BID Losartan Potassium (Cozaar), 50 MG PO DAILY Methylcellulose (Laxative) (Citrucel), 500 MG PO DAILY Mirabegron (Myrbetriq Er), 50 MG PO DAILY Ocuvite Preservision (Ocuvite Preservision), 1 TAB PO BID Omeprazole (Prilosec), 20 MG PO BID Psyllium (Metamucil Fiber), 1 PKT PO QAM Ranitidine Hcl (Zantac), 300 MG PO HS Simvastatin (Zocor), 40 MG PO QPM Tamsulosin Hcl (Flomax), 0.4 MG PO QPM [Purelax], 1 PKT PO QAM Scheduled PRN Ibuprofen (Advil), 200 MG PO QAM PRN for Headache or Pain Naproxen (Aleve), 220 MG PO UD PRN for BACK PAIN Allergies Coded Allergies: Azithromycin (Verified Allergy, Unknown, PER H&P 05/20/11, 05/13/17) Erythromycin (Verified Allergy, Unknown, unknown, 05/13/17) Indomethacin (Verified Allergy, Unknown, PER ADMISSION ORDERS 05/20/11, TAKES NAPROXEN OTC, 05/13/17) Metformin (Verified Allergy, Unknown, PER H&P 05/20/11, 05/13/17) Penicillins (Verified Allergy, Unknown, UNKNOWN, 05/13/17) Rosiglitazone (Verified Allergy, Unknown, PER H&P 05/20/11, 05/13/17) Physical Exam Vital Signs Date Time Temp Pulse Resp B/P (MAP) Pulse Ox O2 Delivery O2 Flow Rate FiO2 06/11/17 23:02 65 18 135/83 99 Room Air 06/11/17 21:42 36.7 90 18 136/71 100 Room Air Physical Exam CONSTITUTIONAL/VITAL SIGNS: Reviewed / noted above. GENERAL: Non-toxic in appearance. INTEGUMENTARY: Warm, dry, and [place]. HEAD: Normocephalic. EYES: without scleral icterus or trauma. ENT/OROPHARYNX: clear and moist. LYMPHADENOPATHY/NECK: Is supple without lymphadenopathy or meningismus. RESPIRATORY: Lungs clear and equal. CARDIOVASCULAR: Regular rate and rhythm. GI/ABDOMEN: Soft and nontender. No organomegaly or pulsatile mass. No rebound or guarding. Normal bowel sounds. EXTREMITIES: Warm and well perfused. BACK: No CVA tenderness. NEUROLOGICAL: Intact without focal deficits. PSYCHIATRIC: normal affect. MUSCULOSKELETAL: Normally developed with good muscle tone. Medical Decision & Procedures ER Provider Diagnostic Interpretation: Radiology results as stated below per my review and radiologist interpretation: R HIP UNILATERAL 2 VIEWS CLINICAL HISTORY: fall trauma. Pain. COMPARISON: 05/13/2017 DISCUSSION: Total right hip prosthetic in good position. A lateral plate is present. Linear fracture lines oriented vertically and horizontally were present on the prior study. It is not appear to be evidence for a new or interval finding. Alignment is anatomic. IMPRESSION: Anatomic alignment posttotal right hip arthroplasty and femoral shaft retaining plate. No evidence for a new or interval fracture compared to the prior exam. The above report was generated using voice recognition software. It may contain grammatical, syntax or spelling errors. Electronically signed by: Gurpreet Tello M.D. 06/11/2017 10:14 PM Dictated Date/Time: 06/11/2017 10:12 PM Medications Administered Medications (Trade) Dose Ordered Sig/Dyaa Route Start Time Stop Time Status Last Admin Dose Admin Al Hydroxide/Mg Hydroxide (Maalox Susp) 30 ml NOW STAT PO 06/11/17 21:59 06/11/17 22:01 DC 06/11/17 22:18 30 ML Lidocaine HCl (Viscous Lidocaine 2% Soln) 10 ml NOW STAT PO 06/11/17 21:59 06/11/17 22:01 DC 06/11/17 22:18 10 ML Al Hydroxide/Mg Hydroxide (Maalox Susp) 30 ml NOW STAT PO 06/11/17 22:55 06/11/17 22:56 DC 06/11/17 23:10 30 ML ECG Per My Interpretation Indication: other Rate (beats per minute): 82 Rhythm: normal sinus Findings: no acute ischemic change, no ectopy ED Course 2153: Previous medical records were reviewed. The patient was evaluated in room C1B. A complete history and physical examination was performed. 2158: Ordered Lidocaine HCl 10 mL PO, Maalox Susp 30 mL PO 2254: Ordered Maalox Susp 20 mL PO. 2300: On reevaluation, the patient is resting in bed. I discussed the results and findings with the patient. He verbalized agreement of the treatment plan. The patient was discharged home. Medical Decision Differential diagnosis: Etiologies such as fracture, dislocation, intra-abdominal, pneumothorax, intrathoracic , intracranial, neurologic, as well as other traumatic pathologies were entertained. This is a 89-year-old male who presents to the ED with a chief complaint of a fall. The patient states that he lost his balance and he fell today. He denies any specific injury but was concerned about previous right hip surgery and wanted to make sure nothing moved out of place. The patient also states that he had pizza tonight and this caused some heartburn. He is primarily here for the fall. His exam was unremarkable for acute trauma. He did not strike his head or lose consciousness. There was no midline tenderness to the spine. No obvious external injury. X-ray of the right hip did not show any acute abnormalities. EKG shows a sinus rhythm at a rate of 82 without ischemic changes. A GI cocktail was provided. He was told the results and felt to be stable for discharge. Medication Reconcilliation Current Medication List: was personally reviewed by me Blood Pressure Screening Patient's blood pressure: Elevated blood pressure Blood pressure disposition: Elevated BP felt to be situational Impression Primary Impression: Fall Scribe Attestation The scribe's documentation has been prepared under my direction and personally reviewed by me in its entirety. I confirm that the note above accurately reflects all work, treatment, procedures, and medical decision making performed by me. Departure Information Dispostion Home / Self-Care Referrals Terrell Briseno M.D. (PCP) Patient Instructions My [facility] Additional Instructions Follow-up with your doctor for further care and evaluation in 1-2 days if symptomatic. Return to the emergency department for worsening or new symptoms or any concerns. You have been examined and treated today on an emergency basis only. This is not a substitute for, or an effort to provide, complete comprehensive medical care. It is impossible to recognize and treat all injuries or illnesses in a single emergency department visit. It is therefore important that you follow up closely with your doctor. Call as soon as possible for an appointment.
[2017-06-11 23:02] VITALS: BP 135/83; PULSE 65; O2SAT 99
== END 2017-06-11 23:12 | disposition home or self-care (01) ==
LOC: C.EDC 21:29 → EDBD 21:29 → C.EDC 23:12
DX: R52 Pain, unspecified (principal); W19.XXXA Unspecified fall, initial encounter; I10 Essential (primary) hypertension; N40.0 Benign prostatic hyperplasia without lower urinary tract symptoms; K21.9 Gastro-esophageal reflux disease without esophagitis; E78.5 Hyperlipidemia, unspecified; Z87.891 Personal history of nicotine dependence; Z79.899 Other long term (current) drug therapy; Z88.8 Allergy status to other drugs, medicaments and biological substances; Z88.0 Allergy status to penicillin